=== PATIENT | male | born 1945 | race Caucasian/White ===

== ENCOUNTER 2020-09-16 07:09 | Outpatient (REF) | payer MEDICARE, SELFPAY ==
[2020-09-16 11:51] LABS: Anion Gap 13 (12-20); Blood Urea Nitrogen 18 mg/dL (9-16); Carbon Dioxide 29 mmol/L (22-29); Cholesterol 124 mg/dL; Estimated Glomerular Filt Rate > 60; Glucose Fasting 92 mg/dL (60-99); HDL Cholesterol 48 mg/dL; LDL Cholesterol Calculated 63 mg/dl; Potassium 3.9 mmol/L (3.3-5.1); Triglycerides 69 mg/dL
[2020-09-16 11:57] LABS: Chloride 103 mmol/L (96-108); Sodium 141 mmol/L (135-145)
== END 2020-09-16 07:10 | disposition home or self-care (01) ==
LOC: HO.HMGCLDS 07:09
PROVIDERS: PCP Internal Medicine; Visit Provider Internal Medicine
DX: E78.2 Mixed hyperlipidemia (principal)
CPT/HCPCS: 36415; 80048; 80061

== ENCOUNTER 2021-01-27 07:26 | Outpatient (REF) | payer MEDICARE, SELFPAY ==
[2021-01-27 12:11] LABS: Alanine Aminotransferase 33 U/L (0-40); Aspartate Amino Transferase 28 U/L (5-37); Cholesterol 121 mg/dL; HDL Cholesterol 52 mg/dL; LDL Cholesterol Calculated 51 mg/dl; Triglycerides 91 mg/dL
== END 2021-01-27 07:27 | disposition home or self-care (01) ==
LOC: HO.HMGCLDS 07:26
PROVIDERS: PCP Internal Medicine; Visit Provider Internal Medicine Cardiovascular Disease
DX: E78.1 Pure hyperglyceridemia (principal); I21.4 Non-ST elevation (NSTEMI) myocardial infarction
CPT/HCPCS: 36415; 80061; 84450; 84460

== ENCOUNTER 2021-09-15 06:49 | Outpatient (REF) | payer MEDICARE, SELFPAY ==
[2021-09-15 11:45] LABS: Anion Gap 13 (12-20); Blood Urea Nitrogen 23 mg/dL (9-16); Calcium 9.5 mg/dL (8.4-10.2); Carbon Dioxide 28 mmol/L (22-29); Chloride 105 mmol/L (96-108); Estimated Glomerular Filt Rate > 60; Glucose Random 97 mg/dL (60-115); Potassium 3.9 mmol/L (3.3-5.1); Sodium 142 mmol/L (135-145)
[2021-09-15 11:53] LABS: Prostate Specific Antigen 3.26 ng/mL (<0.05-4.0)
== END 2021-09-15 06:50 | disposition home or self-care (01) ==
LOC: HO.HMGCLDS 06:49
PROVIDERS: Visit Provider Internal Medicine
DX: Z12.5 Encounter for screening for malignant neoplasm of prostate (principal); E78.2 Mixed hyperlipidemia
CPT/HCPCS: 36415; 80048; 84153

== ENCOUNTER 2022-04-22 07:13 | Outpatient (REF) | payer MEDICARE, SELFPAY ==
[2022-04-22 12:32] LABS: Alanine Aminotransferase 35 U/L (0-40); Albumin Level 4.3 g/dL (3.5-5.0); Alkaline Phosphatase 83 U/L (39-117); Aspartate Amino Transferase 26 U/L (5-37); Bilirubin Direct 0.6 mg/dL (0.0-0.5); Bilirubin Total 1.6 mg/dL (0.0-1.0); Cholesterol 129 mg/dL; HDL Cholesterol 48 mg/dL; LDL Cholesterol Calculated 63 mg/dl; Total Protein 6.8 g/dL (6.5-8.0); Triglycerides 90 mg/dL
== END 2022-04-22 07:14 | disposition home or self-care (01) ==
LOC: HO.HMGCLDS 07:13
PROVIDERS: PCP Internal Medicine; Visit Provider Nurse Practitioner
DX: I21.4 Non-ST elevation (NSTEMI) myocardial infarction (principal)
CPT/HCPCS: 36415; 80061; 80076

== ENCOUNTER 2023-02-22 07:32 | Outpatient (REF) | payer MEDICARE, SELFPAY ==
[2023-02-22 12:02] LABS: Anion Gap 15 (12-20); Blood Urea Nitrogen 24 mg/dL (9-16); Calcium 9.9 mg/dL (8.4-10.2); Carbon Dioxide 27 mmol/L (22-29); Chloride 103 mmol/L (96-108); Cholesterol 119 mg/dL; Estimated Glomerular Filt Rate > 60; Glucose Random 100 mg/dL (60-115); HDL Cholesterol 51 mg/dL; LDL Cholesterol Calculated 53 mg/dl; Sodium 141 mmol/L (135-145); Triglycerides 77 mg/dL
== END 2023-02-22 07:33 | disposition home or self-care (01) ==
LOC: HO.HMGCLDS 07:32
PROVIDERS: PCP Internal Medicine; Visit Provider Internal Medicine
DX: E78.2 Mixed hyperlipidemia (principal)
CPT/HCPCS: 36415; 80048; 80061

== ENCOUNTER 2024-10-23 07:22 | Outpatient (REF) | payer MEDICARE, SELFPAY ==
--- OUTSIDE RECORDS SUMMARY | 2024-10-23 07:25 | XMS_ITS | Data Portability ---
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 Med. & Rehab LYN ROWE Primary Care Provider [phone] JUAN PERKINS Double Corner Cutter DION MATSON Erp Analyst [phone] CELINE SANTOS Urologist Assessment Encounter Date Assessment Date Assessment LastModified by Organization Details LastModified Time 08/01/2024 08/01/2024 Assessment: Patient presents to initial physical therapy evaluation with signs and symptoms consistent with: improving subacute shoulder pain . Mild AROM deficits present but not pain with passive motion or resisted testing. Based on exam, patient appropriate to self manage at this point - return in 3-4 weeks to ensure further progress back towards PLOF. Delacruz deficits/impairme nts: shoulder AROM Functional limitations: difficulty with lifting/reaching, self-care tasks and ADL Response to treatment: patient demonstrates safe and appropriate performance of initial home exercise program. Patient tolerated all interventions well and denied adverse events upon departure. Patient would benefit from skilled PT intervention in order to address the aforementioned impairments, maximize patient function, and achieve patient specific goals. Patients' prognosis for improvement with PT care is GOOD. Goal Progress Comment Improve QuickDASH score by 10% to determine significant functional improvement. new Independent in comprehensive HEP. new Normalize L shoulder flexion and abduction AROM new new Additional goals to be added as appropriate. Plan: Patient will benefit from 10 weeks of skilled physical therapy at a frequency of 1session(s) per week. Treatment to include the following as indicated: 02159 Therapeutic Exercise, 76385 Neuromuscular Re-education, 49200 Gait Training, 47114 Manual Therapy, 86967 Therapeutic Activity, and 95304 Self-care and ADL Training Next visit: return in 3-4 weeks for repeat assessment [email or web address] Not available 08/01/2024 15:14:25 08/22/2024 08/22/2024 Assessment: improving subacute shoulder pain Initiating home exercise program for reduced jt irritation. Updated home exercises issued in writing. Delacruz deficits/impairme nts: shoulder AROM Functional limitations: difficulty with lifting/reaching, self-care tasks and ADL Response to treatment: patient demonstrates safe and appropriate performance of initial home exercise program. Patient tolerated all interventions well and denied adverse events upon departure. Patient would benefit from skilled PT intervention in order to address the aforementioned impairments, maximize patient function, and achieve patient specific goals. Plan: Patient will benefit from 10 weeks of skilled physical therapy at a frequency of 1session(s) per week. Treatment to include the following as indicated: 88549 Therapeutic Exercise, 43312 Neuromuscular Re-education, 38031 Gait Training, 12322 Manual Therapy, 44700 Therapeutic Activity, and 37813 Self-care and ADL Training Next visit: return in 3-4 weeks for repeat assessment, trial MT as needed [email or web address] Not available 08/22/2024 14:58:22 09/11/2024 09/11/2024 Assessment: improving subacute shoulder pain Mild improvements noted. Updated home exercises issued in writing. Delacruz deficits/impairme nts: shoulder AROM Functional limitations: difficulty with lifting/reaching, self-care tasks and ADL Response to treatment: patient demonstrates safe and appropriate performance of initial home exercise program. Patient tolerated all interventions well and denied adverse events upon departure. Patient would benefit from skilled PT intervention in order to address the aforementioned impairments, maximize patient function, and achieve patient specific goals. Plan: Patient will benefit from 10 weeks of skilled physical therapy at a frequency of 1session(s) per week. Treatment to include the following as indicated: 83837 Therapeutic Exercise, 56478 Neuromuscular Re-education, 62731 Gait Training, 80597 Manual Therapy, 81980 Therapeutic Activity, and 20893 Self-care and ADL Training Next visit: review home program and progress as appropriate [email or web address] Not available 09/11/2024 12:30:23 09/24/2024 09/24/2024 Assessment: improving subacute shoulder pain Cues today to narrow hand position on push-ups for reduced load on anterior shoulder. No changes to home program today. Improvements today noted in AROM functional IR. Delacruz deficits/impairme nts: shoulder AROM Functional limitations: difficulty with lifting/reaching, self-care tasks and ADL Response to treatment: patient demonstrates safe and appropriate performance of initial home exercise program. Patient tolerated all interventions well and denied adverse events upon departure. Patient would benefit from skilled PT intervention in order to address the aforementioned impairments, maximize patient function, and achieve patient specific goals. Plan: Patient will benefit from 10 weeks of skilled physical therapy at a frequency of 1session(s) per week. Treatment to include the following as indicated: 58679 Therapeutic Exercise, 33964 Neuromuscular Re-education, 51541 Gait Training, 87387 Manual Therapy, 85537 Therapeutic Activity, and 76347 Self-care and ADL Training Next visit: review home program and progress as appropriate [email or web address] Not available 09/24/2024 12:53:39 10/08/2024 10/08/2024 Assessment: improving subacute shoulder pain Treatment today focused on improving functional IR mobility. Positive response to treatment. Encouraged pt to continue working back towards PLOF. Delacruz deficits/impairme nts: shoulder AROM Functional limitations: difficulty with lifting/reaching, self-care tasks and ADL Response to treatment: patient demonstrates safe and appropriate performance of initial home exercise program. Patient tolerated all interventions well and denied adverse events upon departure. Patient would benefit from skilled PT intervention in order to address the aforementioned impairments, maximize patient function, and achieve patient specific goals. Plan: Patient will benefit from 10 weeks of skilled physical therapy at a frequency of 1session(s) per week. Treatment to include the following as indicated: 40218 Therapeutic Exercise, 59159 Neuromuscular Re-education, 60484 Gait Training, 21245 Manual Therapy, 77555 Therapeutic Activity, and 56231 Self-care and ADL Training Next visit: re-evaluate [email or web address] Not available 10/08/2024 12:54:17 Plan of Treatment Reminders Order Date Submit Date Provider Last Modified By Organization Details Last Modified Time Details Appointments Procedure , 2024 10:00A M Rosalie Banuelos DPM Not available Not available Not available Follow Up, 2024 12:30P M MAGGIE DEL RIO, PT, DPT Not available Not available Not available Wellness Visit 2025 08:30A M Lyn Rowe MD Not available Not available Not available Lab None recorded. Referral None recorded. Procedures None recorded. Surgeries None recorded. Imaging None recorded. Medication Orders None recorded. Patient TargetsNo targets recorded. Patient Instructions Encounter Date Encounter Id Patient Instructions Last Modified By Organization Details Last Modified Time 08/01/2024 [id number] Patient instruct ed to inform attending physical therapist of any apprehension, pain, discomfort, or change in symptoms throughout the course of treatment. Patient verbalized understanding and agreed to comply. Not available 08/01/2024 15:14:32 08/22/2024 [id number] Patient instruct ed to inform attending physical therapist of any apprehension, pain, discomfort, or change in symptoms throughout the course of treatment. Patient verbalized understanding and agreed to comply. [email or web address] Not available 08/22/2024 08:02:23 09/11/2024 [id number] Patient instruct ed to inform attending physical therapist of any apprehension, pain, discomfort, or change in symptoms throughout the course of treatment. Patient verbalized understanding and agreed to comply. Not available 09/11/2024 12:01:03 09/24/2024 [id number] Patient instruct ed to inform attending physical therapist of any apprehension, pain, discomfort, or change in symptoms throughout the course of treatment. Patient verbalized understanding and agreed to comply. [email or web address] Not available 09/24/2024 12:31:56 10/08/2024 [id number] Patient instruct ed to inform attending physical therapist of any apprehension, pain, discomfort, or change in symptoms throughout the course of treatment. Patient verbalized understanding and agreed to comply. [email or web address] Not available 10/08/2024 12:34:40 Reason for Referral None Reported. Results Created Date Observation Date Name Description Value Unit Range Abnormal Flag Note LastModifiedBy Organization Detail LastModifiedTime 07/01/20 24 07/01/2024 XR, shoul lon CLINIC AL HISTOR Y: Left should er pain. TECHNI QUE: 3 views of the left should er were obtain ed. COMPAR RONEY: None. FINDIN GS: There is no fractu re or disloc ation. The acromi oclavi cular joint space is preser betsy. There is acromi oclavi cular joint hypert rophy. The glenoh umeral joint space is preser betsy. IMPRES KALI: No acute bone abnorm ality. Acromi oclavi cular joint degene rative change . Maria Casarez kt: Yolanda Collins ms [facility] (Imaging) [address] , [place], [id number], 07/01/2024 12:57:33 Result Notes None recorded. Problems Name Problem SNOMED Code Status Onset Date Resolution Date Notes Provider Name and Address Organization Details Recorded Time Mixed hyperlip idemia 350016183 Active 2004 Stephanie Gonzalez MD [address] [place], [address], [facility] 6 09:56:39 Carpal tunnel syndrome 64592458 Completed 200106/11/2014 Stephanie Gonzalez MD [address] [place] [address] [place], [address], [facility] 6 09:56:39 Viral disease 90527739 Completed 199904/19/2012 Stephanie Gonzalez MD [address] [place], [place] [address], [address], [facility] 6 09:56:39 Lateral epicondy litis 671146951 Completed 200104/19/2012 Stephanie Gonzalez MD [address] [place], [place] [address], [address], [facility] 6 09:56:40 Temporom andibula r joint disorder 88041062 Completed 200106/11/2014 Stephanie Gonzalez MD [address] [place] [place], [address], [facility] 6 09:56:40 Increase d frequenc y of urinatio n 043892533 Completed 200706/12/2013 [place], [address], [facility] 6 09:56:40 Neck pain 81107678 Completed 200004/19/2012 [place], [address], [facility] 6 09:56:40 Hip pain 07158418 Completed 200606/12/2013 Stephanie Gonzalez MD [address] [place], [address], [facility] 6 09:56:40 Dizzines s 169033111 Completed 200604/19/2012 [place], [address], [facility] 6 09:56:40 Medial epicondy litis 50458873 Completed 200204/19/2012 Stephanie Gonzalez MD [address] [place], [address], [facility] 6 09:56:40 Atopic dermatit is 52979085 Completed 200404/19/2012 [place], [address], [facility] 6 09:56:40 Contact dermatit is due to plants, except food Completed 200406/12/2013 Stephanie Gonzalez MD [address] [place], [address], [facility] 6 09:56:40 Breathin g painful 10993499 Completed 200304/19/2012 [place], [address], [facility] 6 09:56:40 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 200006/11/2014 [place], [address], [facility] 6 09:56:39 Intersti tial myositis 87626160 Completed 200706/11/2014 [place], [address], [facility] 6 09:56:40 Common cold 06963573 Completed 200404/19/2012 Stephanie Gonzalez MD [address] [place], [address], [facility] 6 09:56:40 Cervical spondylo sis without myelopat hy 898745957 Completed 200006/11/2014 Stephanie Gonzalez MD [address] [place], [address], [facility] 6 09:56:40 Knee pain Completed 200606/12/2013 Stephanie Gonzalez MD [address] [place], [address], [facility] 6 09:56:40 On examinat ion - a rash Completed 200604/19/2012 Stephanie Gonzalez MD [address] [place], [address], [facility] 6 09:56:40 Benign paroxysm al position al vertigo 779733709 Completed 200606/11/2014 Stephanie Gonzalez MD [address] [place], [address], [facility] 6 09:56:39 Hyperlip idemia 96401732 Completed 200006/11/2014 Stephanie Gonzalez MD [address] [place], [address], [facility] 6 09:56:39 Abnormal involunt catherine movement 332553399 Completed 200106/11/2014 Stephanie Gonzalez MD [address] [place], [address], [facility] 6 09:56:40 Streptoc occal sore throat 42666862 Completed 200404/19/2012 Stephanie Gonzalez MD [address] [place], [address], [facility] 6 09:56:39 Benign prostati c hyperpla munir 477553971 Active 2004 Stephanie Gonzalez MD [address] [place], [place] [address], [address], [facility] 6 09:56:40 Neck sprain 944578031 Completed 200004/19/2012 Stephanie Gonzalez MD [address] [place], [place] [address], [address], [facility] 6 09:56:40 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 Lyn Rowe MD [address] [place], [place] [address], [address], [facility] 6 14:26:35 Coronary arterios clerosis 46860479 Active 05/2016 cath 60 % mid LAD, resolving OM1 thrombus Lyn Rowe MD [address] [place], [place] [address], [address], [facility] 6 14:27:04 Posterio r vitreous detachme nt 593455781 Active 2023 follows Maria Luisa Rowe MD [address] [place], [place] [address], [address], [facility] 4 18:06:42 Angina pectoris 257289095 Active 2024 Lyn Rowe MD [address] [place], [place] [address], [address], [facility] 5 09:26:30 Problem Notes None recorded. Procedures Surgical History Date Name Laterality Status Provider Name and Address Organization Details Recorded Time 10/09/19 20354: Therapeutic Exercise completed MAGGIE DEL RIO PT, DPT [address] [place], [place] [address], [address], [facility] 10/08/2024 12:53:32 10/09/19 25 64663: Manual Therapy completed MAGGIE DEL RIO PT, DPT [address] [place], [place] [address], [address], [facility] 10/08/2024 12:53:29 10/09/19 25 Treatment and Advice completed MAGGIE DEL RIO, PT, DPT [address] [place], [address], [facility] 10/08/2024 12:34:40 09/25/19 25 19001: Therapeutic Exercise completed MAGGIE DEL RIO, PT, DPT [address] [place], [address], [facility] 09/24/2024 12:52:45 09/25/19 25 66728: Manual Therapy completed MAGGIE DEL RIO, PT, DPT [address] [place], [address], [facility] 09/24/2024 12:52:46 09/25/19 25 Treatment and Advice completed MAGGIE DEL RIO PT, DPT [address] [place], [address], [facility] 09/24/2024 12:31:56 09/11/19 25 70909: Therapeutic Exercise completed MAGGIE DEL RIO PT, DPT [address] [place], [address], [facility] 09/11/2024 12:01:03 09/11/19 25 12923: Manual Therapy completed MAGGIE DEL RIO PT, DPT [address] [place], [address], [facility] 09/11/2024 12:25:37 09/11/19 25 Treatment and Advice completed MAGGIE DEL RIO PT, DPT [address] [place], [address], [facility] 09/11/2024 12:25:27 08/22/19 25 94689: Therapeutic Exercise completed MAGGIE DEL RIO, PT, DPT [address] [place], [address], [facility] 08/22/2024 14:57:20 08/22/19 25 Treatment and Advice completed MAGGIE DEL RIO, PT, DPT [address] [place], [address], [facility] 08/22/2024 14:57:32 08/01/19 25 Smoking Cessation Counselling completed MAGGIE DEL RIO, PT, DPT [address] [place], [address], [facility] 08/01/2024 13:02:20 08/01/19 25 Physical Activity Counselling completed MAGGIE DEL RIO, PT, DPT [address] [place], [address], [facility] 08/01/2024 13:02:20 08/01/19 25 87418: PT Eval Low Complexity completed MAGGIE DEL RIO PT, DPT [address] [place], [address], [facility] 08/01/2024 13:02:20 08/01/19 25 Treatment and Advice completed MAGGIE DEL RIO PT, DPT [address] [place], [address], [facility] 08/01/2024 15:12:02 07/29/19 25 Medicare Wellness Visit completed JAZMYNE Haas [facility] 07/25/2024 13:51:51 07/29/19 25 Cardiovascular disease risk reduction counseling completed JAZMYNE Haas [facility] 07/25/2024 13:53:35 07/29/19 25 prevention-annual alcohol misuse screening completed JAZMYNE Haas [facility] 07/25/2024 13:53:33 09/22/19 21 Medicare Wellness Visit completed Shannon Velásquez [facility] 09/21/2020 08:34:26 09/22/19 21 prevention-cardiov ascular risk reduction counseling completed Shannon Velásquez [facility] 09/21/2020 08:34:26 09/22/19 21 prevention-annual alcohol misuse screening completed Shannon Velásquez [facility] 09/21/2020 08:34:26 02/07/20 20 Marylin - Colonoscopy completed Brian Coulter MD [address] [place] [address], [address], [facility] 02/07/2020 08:16:00 09/16/19 20 Medicare Wellness Visit completed Shannon Velásquez [facility] 09/16/2019 08:36:48 09/16/19 20 prevention-annual alcohol misuse screening completed Shannon Velásquez [facility] 09/16/2019 08:36:48 09/11/19 19 Medicare Wellness Visit completed Shannon Velásquez CMA [facility] 09/11/2018 14:08:14 09/19/19 18 87979: Therapeutic Exercise completed Rosalie Downs, PT [address] [place], [address], [facility] 09/19/2017 16:31:52 09/11/19 18 14349: Therapeutic Exercise completed Rosalie Downs, PT [address] [place], [address], [facility] 09/11/2017 12:53:34 09/04/19 18 Physical Activity Counselling completed Rosalie Downs, PT [address] [place], [address], [facility] 09/04/2017 12:53:28 09/04/19 18 97501: PT Eval, Moderate Complexity completed Rosalie Downs, PT [address] [place], [address], [facility] 09/04/2017 12:53:31 08/18/19 18 Knee (Left) Injection completed Lyn Rowe MD [address] [place], [address], [facility] 08/18/2017 16:45:10 07/07/20 17 Medicare Wellness Visit completed Jerman Ardon LPN [facility] 07/07/2017 09:25:42 07/04/20 16 Medicare Wellness Visit completed Anjelica Hi [facility] 07/04/2016 11:13:18 07/03/20 15 Medicare Wellness Visit completed Geri Melendez [facility] 07/03/2015 10:34:17 08/04/19 15 Gonzalez - Colonoscopy completed Mike Gonzalez MD [address] [place], [address], [facility] 08/04/2014 11:22:10 01/08/20 14 Current <strong>Medication s</strong> not Documented, Reason not Given (G8428) completed Rosalie Downs, PT [address] [place], [address], [facility] 01/08/2014 06:45:51 12/31/19 14 <strong>Pain</stro ng> Assessment and Follow-up (G8730) completed Rosalie Downs, PT [address] [place], [address], [facility] 12/31/2013 07:20:30 12/31/19 14 <strong>Falls</str michela> Risk Assessment - No Risk (1101F) completed Rosalie Downs, PT [address] [place], [address], [facility] 12/31/2013 07:20:30 12/31/19 14 <strong>Functional </strong> Outcome w/ POC (G8539) completed Rosalie Downs, PT [address] [place], [address], [facility] 12/31/2013 07:20:30 12/31/19 14 <strong>BMI</stron g> not Documented, Reason not Given (G8421) completed Rosalie Downs, PT [address] [place], [address], [facility] 12/31/2013 07:20:30 12/31/19 14 Current <strong>Medication s</strong> not Documented, Reason not Given (G8428) completed Rosalie Downs, PT [address] [place], [address], [facility] 12/31/2013 07:20:30 05/28/20 13 Medicare Wellness Visit completed Jasmine Denise MA [facility] 05/28/2013 09:43:08 05/24/20 12 Medicare Wellness Visit completed Zayda Paz CMA [facility] 05/24/2012 11:34:23 Imaging Results Imaging Date Name Status LastModified by Organiz ation Details LastModified Time 07/01/2024 XR, shoulder completed [facility] (Im[facility]) [address], [place], [id number], 07/01/2024 12:57:33 Procedure Notes None recorded. Medical Equipment None Reported. Allergies Allergen ID Allergen Name Allergen Category Reaction Reaction Severity Criticality Documentation Date Start Date Code Code System Note Provider Name and Address Organization Details Recorded Time 70245 penicilli n G Not available itching Not available Not available 03/11/2011 7980 RxNorm Not Available [facility] 1 06:05:41 Medications Name Sig Start Date Stop Date Status Note LastModified by Organization Details LastModified Time cyclobenz aprine 10 mg tablet Take 1 tablet every 8 hours by oral route as needed. 2013 active Not Available Not Available Not Avai lable atorvasta tin 80 mg tablet TAKE 1 TABLET BY MOUTH EVERY DAY AT BEDTIME active Not Available Not Available No t Available prednison e 10 mg tablet TAKE 4 TAB BY MOUTH IN THE MORNING FOR 5 DAYS, THEN TAKE 2 TAB/5 DAYS, THEN 1 TAB/4 DAYS, WITH FOOD 05/30 completed Not Available Not Available Not Available atorvasta tin 20 mg tablet TAKE 1 TABLET BY MOUTH EVERY DAY 06/10 completed stopped at [facility] while inpt Not Available Not Available Not Available fluconazo le 150 mg tablet TAKE 1 TABLET BY MOUTH EVERY DAY FOR 3 DAYS 09/16 completed Not Available Not Available Not Available metoprolo l succinate ER 50 mg tablet,ex tended release 24 hr TAKE 1/2 TABLET (25 MG TOTAL) BY MOUTH EVERY DAY. active Not Available Not Available No t Available Claritin 10 mg tablet Take 1 tablet every day by oral route. 06/10 completed Not Available Not Available Not Available prednison e 20 mg tablet Take 2 pills together every morning for the first 5 days. Take 1 pill every morning for the next 5 days. Take a half pill every morning for the last 4 days.Alw ays take with food. 05/30 completed Not Available Not Available Not Available clopidogr el 75 mg tablet TAKE 1 TABLET BY MOUTH EVERY DAY 07/07 completed Not Available Not Available Not Available Aspir-Low 81 mg tablet,de layed release Take 1 tablet every day by oral route. active Not Available Not Available No t Available prochlorp erazine maleate 10 mg tablet active Not Available Not Available Not Available Benadryl Extra Strength 2 %-0.1 % topical cream Apply by topical route 2-3 times 06/10 completed Not Available Not Available Not Available benzonata te 100 mg capsule TAKE 1 CAPSULE BY MOUTH THREE TIMES A DAY NEEDED FOR 10 DAYS 09/16 completed Not Available Not Available Not Available clotrimaz ole-betam ethasone 1 %-0.05 % topical cream APPLY TO AFFECTED AREA TWICE A DAY FOR 2 WEEKS 09/16 completed Not Available Not Available Not Available nitroglyc jb 0.4 mg sublingua l tablet one under the tongue as needed for anginal symptoms , repeat in 5 minutes x 2 dosesthe n call 911 if symptoms persist 07/29 completed Not Available Not Available Not Available bisacodyl 5 mg tablet,de layed release TAKE 4 TABLETS BY MOUTH WITH 8 OUNCES OF WATER 09/21 completed Not Available Not Available Not Available metoprolo l succinate ER 25 mg tablet,ex tended release 24 hr TAKE 1 TABLET BY MOUTH EVERY DAY 11/13 completed Not Available Not Available Not Available fluticaso ne propionat e 50 mcg/actua tion nasal spray,gavin pension SPRAY 1 SPRAY INTO EACH NOSTRIL EVERY DAY 07/29 completed Not Available Not Available Not Available cyclobenz aprine 5 mg tablet Take 1 tablet 3 times a day by oral route as needed, for muscular pain / strain.. 07/29 completed Not Available Not Available Not Available multivita min active Not Available Not Available Not Available Glucos Chond Cplx Advanced active Not Available Not Available Not Available GaviLyte- G 236 gram-22.7 4 gram-6.74 gram-5.86 gram oral solution 09/21 completed Not Available Not Available Not Available Osteo Bi-Flex active Not Available Not Available Not Available metoprolo l succ 25 mg-hydroc hlorothia zide 12.5 mg tablet,ex t.rel 24 hr Take 1 tablet every day by oral route. 07/07 completed Not Available Not Available Not Available Vicodin 5 mg-300 mg tablet Take 1-2 tablet(s ) EVERY 4 HOURS by oral route. 2013 active Not Available Not Available Not Avai lable Fluzone High-Dose (PF) 180 mcg/0.5 mL intramusc ular syringe TO BE ADMINIST ERED BY PHARMACI ST FOR IMMUNIZA TION active Not Available Not Available No t Available Fluzone High-Dose (PF) 180 mcg/0.5 mL intramusc ular syringe TO BE ADMINIST ERED BY A PHARMACI ST 07/04 completed Not Available Not Available Not Available Fluzone High-Dose 0636-0063 (PF) 180 mcg/0.5 mL intramusc ular syringe ADMINIST ERED BY [facility] 07/07 completed Not Available Not Available Not Available Fluzone High-Dose 2234-6275 (PF) 180 mcg/0.5 mL intramusc ular syringe TO BE ADMINIST ERED BY PHARMACI ST FOR IMMUNIZA TION 08/28 completed Not Available Not Available Not Available Fluzone High-Dose 2018- (PF) 180 mcg/0.5 mL intramusc ular syringe 09/16 completed Not Available Not Available Not Available Fluad Quad 0213-3717 (65yr up)(PF) 60 mcg (15 mcg x 4)/0.5mL IM syringe PHARMACY ADMINIST ERED 09/21 completed Not Available Not Available Not Available Paxlovid 300 mg (150 mg x 2)-100 mg tablets in a dose pack Take 1 dose pk twice a day by oral route for 5 days. 07/20 completed Not Available Not Available Not Available Vitals None Recorded Social History Question Answer Notes LastModified by Organizat ion Details LastModified Time Tobacco Smoking Status Never Smoker JAZMYNE Haas, [facility] 07/29/2024 08:35:04 Do You Have An Advance Directive? No Given Today 08/26/2009 [email or web address] Information not available 08/26/2009 What Is Your Level Of Alcohol Consumption? Occasional 1-2 Month Information not available 09/16/2019 Do You Wear A Helmet When Biking? Yes Information not available 07/04/2016 What Is Your Level Of Caffeine Consumption? Moderate 1-2 Cups Daily [email or web address] Information not available 09/11/2018 How Much Tobacco Do You Chew? None Information not available 07/04/2016 Are You Currently Employed? No Information not available 07/20/2022 What Type Of Diet Are You Following? REGULAR Information not available 07/04/2016 Education 4 Year College Information not available 07/04/2016 What Is Your Occupation? Retired [email or web address] Information not available 07/07/2017 Have There Been Any Changes To Your Family Or Social Situation? No [email or web address] Information not available 07/20/2022 How Many Days In The Past Year Have You Had A Heavy Drinking Consumption (4+ Female, 5+ Male)? 0 Information not available 08/16/2012 Are There Any Guns Present In Your Home? No Information not available 07/04/2016 Do You Use Insect Repellent Routinely? No Information not available 07/20/2022 Live Alone Or With Others? With Others Information not available 07/04/2016 Patient Has Health Care Proxy Signed And In Chart No INFORMATION GIVEN 05/24/2012 Information not available 05/24/2012 CCM Consent Discussion 07/04/2016 [email or web address] Information not available 07/04/2016 Marital Status Informatio n not available 07/04/2016 Mosquito Repellent Used Routinely Yes Information not available 07/04/2016 What Was The Date Of Your Most Recent Tobacco Screening? 07/29/2024 Information not available 07/29/2024 How Many Children Do You Have? 2 [email or web address] Information not available 09/11/2018 What Is Your Relationship Status? [email or web address] Information not available 07/20/2022 Do You Use Your Seat Belt Or Car Seat Routinely? Yes [email or web address] Information not available 07/20/2022 Seat Belts Used Routinely Yes Information not available 07/04/2016 Smoke Alarm In Home Yes Information not available 07/04/2016 Do You Have Smoke And Carbon Monoxide Detectors In Your Home? Yes [email or web address] Information not available 07/20/2022 Are You Passively Exposed To Smoke? No [email or web address] Information not available 07/20/2022 General Stress Level Low Information not available 07/04/2016 Do You Use Sunscreen Routinely? Yes Information not available 07/04/2016 Sex: Male Functional Status Question Answer Note LastModified by Organizat ion Details LastModified Time What is your exercise level? Moderate 3 times a week [email or web address] Information not available 07/20/2022 Mental Status None recorded. Family History Nothing Reported. Medical History Condition Response NEUROLOGIC N EYE N RENAL / GENITOURINARY N HEMATOLOGIC N INFECTIOUS DISEASE N GASTROINTESTINAL N METABOLIC N SKIN Y CARDIOVASCULAR N MUSCULOSKELETAL N ENDOCRINE N RHEUMATOLOGIC N PSYCHIATRIC N CANCER N Immunizations Vaccine Type Date Status Note Provider Nam e and Address Organization Details Recorded Time Influenza, split virus, trivalent, preservative 1 completed Not Available [facility] 08/10/2019 02:18:10 Td(adult) unspecified formulation 5 completed Not Available [facility] 06/08/2011 05:21:07 Influenza, split virus, trivalent, preservative 2 completed Not Available [facility] 08/10/2019 02:31:15 pneumococcal polysaccharide PPV23 2 completed Not Available [facility] 08/10/2019 02:14:35 Influenza, split virus, trivalent, PF 3 completed Not Available [facility] 08/10/2019 02:30:29 Pneumococcal conjugate PCV 13 5 completed Not Available [facility] 08/10/2019 02:29:57 Influenza, high-dose, trivalent, PF 4 completed Not Available [facility] 08/24/2019 02:10:39 Td (adult), 2 Lf tetanus toxoid, preservative free, adsorbed 7 completed Not Available [facility] 08/10/2019 02:22:28 Influenza, high-dose, trivalent, PF 5 completed Not Available [facility] 08/24/2019 02:10:39 influenza, unspecified formulation 6 completed Anjelica zepeda, [facility] 07/04/2016 11:20:58 Influenza, split virus, quadrivalent, preservative 8 completed Michele Ellison NP [address] [place] [address], [id number], [facility] 05/27/2018 17:30:38 Influenza, split virus, quadrivalent, preservative 9 completed STEF Agrawal, [facility] 04/26/2019 10:18:56 Influenza, split virus, quadrivalent, preservative 0 completed STEF Agrawal, [facility] 09/21/2020 08:36:59 Influenza, high-dose, trivalent, PF 4 completed Anne Espinosa MA null, [facility] 07/01/2024 17:29:32 COVID-19, mRNA, LNP-S, PF, 30 mcg/0.3 mL dose 1 completed [facility] 01/[facility]2022 13:50:55 COVID-19, mRNA, LNP-S, PF, 30 mcg/0.3 mL dose 1 completed [facility] 01/19/2022 13:51:07 COVID-19, mRNA, LNP-S, PF, 30 mcg/0.3 mL dose 1 completed [facility] 01/19/2022 13:51:20 Influenza, adjuvanted, quadrivalent, PF 2 completed [facility] 07/20/2022 11:25:19 COVID-19, mRNA, LNP-S, PF, 30 mcg/0.3 mL dose, suzie-sucrose 2 completed [facility] 07/20/2022 11:25:42 Influenza, high-dose, quadrivalent, PF 3 completed JAZMYNE Saunders null, [facility] 07/26/2023 08:39:22 COVID-19, mRNA, LNP-S, PF, 30 mcg/0.3 mL dose 4 [facility] 07/01/2024 10:06:41 Past Encounters Encounter ID Performer Location Encounter Start Date Encounter Closed Date Diagnosis/Indication Diagnosis SNOMED-CT Code Diagnosis ICD10 Code Diagnosis Note [id number] [facility] Urgent Care [address] [place] [address] 06/10/2000 11:15:00 08/13/2008 02:02:29 [id number] , [facility], OFFICE [address] [place] [address] 08/01/2000 08:00:00 08/13/2008 02:02:29 [id number] Physical Therapy, [facility] [address] [place] [id number] 08/04/2000 08:30:00 08/13/2008 02:02:29 [id number] FP [facility], OFFICE [address] [place] [address] 1 08/21/2000 08:30:00 08/13/2008 02:02:29 [id number] [facility]IOR [facility], OFFICE [address] [place] [address] 04/19/2001 15:30:00 08/13/2008 02:02:29 [id number] [facility]IOR [facility], OFFICE [address] [place] [address] 1 06/11/2001 16:45:00 08/13/2008 02:02:29 [id number] FP [facility], OFFICE [address] [place] [id number] 10/04/2001 16:00:00 08/13/2008 02:02:29 [id number] Y[facility]IOR [facility], OFFICE [address] [place] [address] 1 11/30/2001 08:00:00 08/13/2008 02:02:29 [id number] Y[facility]IOR [facility], OFFICE [address] [place] [id number] 1 04/10/2002 08:53:06 08/13/2008 02:02:29 [id number] FP [facility], OFFICE [address] [place] [address] 1 02/17/2003 15:43:41 08/13/2008 02:02:29 [id number] [facility]IOR [facility], OFFICE [address] [place] [id number] 09/04/2003 07:54:34 09/04/2003 15:46:23 [id number] FP [facility], OFFICE [address] [place] [id number] 1 10/15/2004 14:05:05 2004 09:21:19 [id number] [facility] - [facility] [address] [place] [address] 2004 07:34:47 2004 08:22:46 [id number] YUNIOR [facility], OFFICE [address] [place] [id number] 10/25/2004 15:53:33 10/26/2004 09:18:38 [id number] [facility], OFFICE [address] [place] [address] 11/05/2004 12:11:51 11/05/2004 17:39:29 [id number] , [facility], OFFICE [address] [place] [address] 12/03/2004 10:07:06 12/03/2004 11:47:44 [id number] [facility] , [facility] [address] [place] [address] 08/08/2006 14:05:04 08/09/2006 10:57:58 [id number] , [facility], OFFICE [address] [place] [address] 08/08/2006 13:47:50 08/08/2006 14:40:47 [id number] [facility], OFFICE [address] [place] [address] 1 09/27/2006 09:30:31 09/28/2006 08:48:32 [id number] [facility], [facility] [address] [place] [address] 10/11/2006 16:13:35 10/12/2006 08:19:05 [id number] [facility], [facility] [address] [place] [address] 1 11/16/2007 08:29:41 08/13/2008 02:02:29 [id number] [facility], [facility] [address] [place] [address] 05/20/2008 08:15:11 08/13/2008 02:02:29 [id number] [facility] - [facility] [address] [place] [address] 05/20/2008 08:37:08 05/20/2008 08:37:16 [id number] [facility], [facility] [address] [place] [address] 08/26/2009 14:38:01 08/27/2009 09:51:57 [id number] [facility], [facility] [address] [place] [address] 1 03/11/2011 08:56:07 03/14/2011 08:13:42 [id number] , [facility], [address] [place] [address] 07/23/2011 11:33:03 07/23/2011 11:56:38 [id number] Reggie No III, MD , [facility], OFFICE [address] [place] [address] [place] [id number] 05/24/2012 11:26:48 05/24/2012 12:02:44 [id number] Jass Randolph MD [facility] , [address] [place] [id number] 06/21/2012 10:13:33 06/25/2012 13:59:47 [id number] Reggie No III, MD , [facility], [address] [place] [address] 08/16/2012 10:23:47 08/16/2012 10:42:10 [id number] Jasmine Denise MA , [facility], OFFICE [address] [place] [address] [place] [id number] 05/28/2013 09:35:53 05/28/2013 10:02:00 Adult health examination [id number] see Risk Assessment and Lifestyle Change Counseling section above Counseling [id number] Influenza vaccine needed [id number] 106 Hip joint painful on movement 411266661 [id number] Kathleen Teran MA , [facility], [address] [place] [address] 12/26/2013 09:34:21 12/26/2013 10:25:52 Backache [id number] [facility], [address] [place] [address] 12/30/2013 14:12:35 12/31/2013 09:44:56 Backache 506160781 [id number] [facility], [address] [place] [address] 01/07/2014 09:30:05 01/08/2014 10:33:12 Backache 487716400 [id number] , [facility], OFFICE [address] [place] [address] [place] [address] 06/11/2014 10:34:28 06/11/2014 11:11:41 Adult health examination [id number] see Risk Assessment and Lifestyle Change Counseling section above Benign pro static hyperplasia [id number] [facility], [address] [place] [id number] 08/04/2014 10:07:06 08/04/2014 14:21:28 [id number] Lyn Rowe MD , [facility], OFFICE [address] [place] [address] DR [place] [id number] 02/02/2015 16:22:58 02/03/2015 20:07:10 Eustachian tube disorder 18353292 Dx, cause course of and treatment options discussed and agreed to. from [place] sc[place] trip [id number] Lyn Rowe MD , [facility], [address]ICE [address] [place] [address] 07/03/2015 10:08:26 07/03/2015 11:08:29 Adult health examination 609521342 Z00.00 well pt .with controlled hyperlipid emia, no other active issues see Risk Assessment and Lifestyle Change Counseling section above Counseling 180497942 Z71 .9 Screening for disorder 723307548 Z11.59 Active or passive immunization 569870004 Z23 Hyperlipidemia 16877670 E78.5 last at goal on atorvastat in 20 mg pkan contiune indefinite ly routine care [id number] Stephanie Gonzalez MD , [facility], [address]ICE [address] [place] [address] 12/24/2015 09:41:45 12/25/2015 10:38:34 Generalized atopic dermatitis 298369396 L20.89 most likely due to poizon price/oak Backache 233190780 M54.9 chronic problem controlled w flexerill when it is flare up, refilled [id number] Lyn Rowe MD , [facility], OFFICE [address] [place] [address] 07/04/2016 10:55:54 07/04/2016 11:59:19 Adult health examination 267747644 Z00.00 see Risk Assessment and Lifestyle Change Counseling section above Counseling 492906417 Z71 .9 Screening for disorder 025884079 Z11.59 Hyperlipidemia 87553258 E78.5 though at goal on atorvastat in 20 mghad dose increased ator 80 since [place].routine care [place] inferi or myocardial infarction 765911684 I25.2 historical .Heart attack Monday the following a hike. I was released from [facility] cardiac landry today and am being treated by Dr. Juan Perkins of [facility] .I have an appointmen t with you on July [address] Perkins on June 27.ator increased, heparin for small OM1 thrombus angina is SSC pressure with lightheade dness sweats L arm weakness. r/w ASA only by EMS [facility] fluctuatin g ST elevations inferiorly and trop mildly elevated. Echo with preserved WM nl EF. no stent placed Coronary arteriosclerosis 04041429 I25.10 05/2016 cath 60 % mid LAD, resolving OM1 thrombusNS [facility]/ u Dr. Juan Perkins of [facility] . Angina pectoris 71993806 0 I20.9 angina is SSC pressure with lightheade dness sweats L arm weakness. 06/2016 at time of IMIsymptom free with curren meds, on beta spike, since NSTEMI 06/2016rem inded about sl NTG use.Dr. Juan Perkins of [facility] . [id number] Lyn Rowe MD , [facility], OFFICE [address] [place] [address] 07/07/2017 09:08:19 07/07/2017 10:08:13 Adult health examination 677777026 Z00.00 see Risk Assessment and Lifestyle Change Counseling section above Counseling 446576835 Z71 .9 Active or passive immunization 226430055 Z23 Screening for disorder 365089805 Z11.59 Hyperlipidemia 96371640 E78.5 though at goal on atorvastat in 20 mghad dose increased ator 80 since [place]routine care [place] inferi or myocardial infarction 620569469 I25.2 historical .Heart attack Monday the following a hike. I was released from [facility] cardiac landry today and am being treated by Dr. Juan Perkins of [facility] .I have an appointmen t with you on July [address] Perkins on June 27.ator increased, heparin for small OM1 thrombus angina is SSC pressure with lightheade dness sweats L arm weakness. r/w ASA only by EMS [facility] fluctuatin g ST elevations inferiorly and trop mildly elevated. Echo with preserved WM nl EF. no stent placed Coronary arteriosclerosis 55935754 I25.10 05/2016 cath 60 % mid [facility]AD, [facility] . Angina pectoris 26359349 0 I20.9 angina is SSC pressure with lightheade dness sweats L arm weakness. 06/2016 at time of IMIsymptom free with curren meds, on beta spike, since NSTEMI 06/2016rem inded about sl NTG use.Dr. Juan Perkins of [facility] . Tubular ad enoma of colon 870922961 D12.6 [id number] , [facility], [address]ICE [address] [place] [address] 08/14/2017 10:38:16 08/14/2017 11:19:55 Mass of axilla 864886932 R22.2 cystlike mass Right axilla with largest dimension about 5 cm. Minimal tenderness . No evidence of infection. Plan: This feels benign but we should determine a diagnosis at as it is moderately large. Ultrasound ordered. We also discussed watching for signs of infection. Shoulder pain 22047552 M 25.511 Chronic intermitte nt right shoulder pain gradually getting worse.Exam was normal.Gustabo n: X-ray and if appropriat e order physical therapy. Pain in left knee 141154 9970 69251 M25.562 He has had chronic bilateral knee pain but worse on the left, much worse recently. No known trauma.. He is tender on the medial joint line.Plan: X-ray and if appropriat e physical therapy. [id number] Lyn oRwe MD , [facility], [address] [place] [address] 08/18/2017 11:39:13 08/23/2017 15:30:34 Screening for malignant neoplasm of colon 882459824 Z12.11 Referral for a DIRECT booked colonoscop y. This patient is a healthy ASA Class 1 or 2 patient (only mild systemic disease), or a STABLE, well controlled insulin dependent diabetic. They do not have serious cardiac disease ie [place]/angiopl asty within 1 year, symptomati c CHF; renal failure with CKD 4 or 5; take Coumadin, Plavix, Aggrenox, etc. Screening for disorder 043344490 Z11.59 Pain in left knee 515308 3731 44497 M25.562 this is meniscal disease.me dial jt line left knee pain hiking extensivel yinjected today , medial approach, through tiny opening into synovial spoace.Fol low expectantl y [id number] Rosalie Milian i, PT Physical Therapy, [facility] [address] [place] [address] 09/04/2017 11:23:16 09/04/2017 13:35:11 Pain in right knee 4766774432 12563 M25.897 [id number] Rosalie Milian i, PT Physical Therapy, [address] [place] [address] 09/11/2017 10:56:39 09/11/2017 13:40:06 Pain in right knee 8931836538 09291 M25.540 [id number] Rosalie Milian i, PT Physical Therapy, [address] [place] [address] 09/19/2017 15:30:02 09/19/2017 16:52:23 Pain in right knee 2774471818 30894 M25.997 [id number] Perla Marks MD , [facility], [place]ICE [address] [place] [address] 11/13/2017 11:57:01 11/13/2017 12:29:45 Otalgia 49230251 H92.01 Inflamed and tender right tragus Plan: Warm compresses to the area with a washcloth for 10 minutes 3 times a day. This may diminish and resolve with that simple treatment or it may get worse and could becomea serious infection due to the confined space. Therefore if it becomes worse in a couple days or later we need to see you right away or you need to get medical attention. If at any point you feel a fever or use see redness spreading to a larger area or if you get right-side d neck pain or throat pain these would constitute reasons to get medical care right away. If you feel that you have had no progress with the soaking we would want to see you at the end of the week such as 11/16 or 11/17. [id number] Lyn Rowe MD , [facility], OFFICE [address] [place] [address] 01/29/2018 09:40:54 01/29/2018 16:53:46 Screening for malignant neoplasm of colon 309871311 Z12.11 due jul 2019.last 2014 Gonzalez, recall 5 yrs Balanitis 08331249 N48.1 very erythemato us penis under the foreskinth ere is cracking of the foreskin as he retracts it. no ulceration s presnetrx lotrisone cream and diflucansu ggested using serially Screening for disorder 369331783 Z11.59 Pain in left knee 307175 2334 03255 M25.562 Hx;this is meniscal disease.me dial jt line left knee pain hiking extensivel yinjected today , medial approach, through tiny opening into synovial spoace.Fol low expectantl y Hyperlipidemia 02230388 E78.5 though at goal on atorvastat in 20 mghad dose increased ator 80 [place]routine care [place] inferi or myocardial infarction 659388329 I25.2 historical .Heart attack Monday the following a hike. I was released from [facility] cardiac landry today and am being treated by Dr. Juan Perkins of [facility] .I have an appointmen t with you on July [address] Perkins on June 27.ator increased, heparin for small OM1 thrombus angina is SSC pressure with lightheade dness sweats L arm weakness. r/w ASA only by EMS [facility] fluctuatin g ST elevations inferiorly and trop mildly elevated. Echo with preserved WM nl EF. no stent placed Coronary arteriosclerosis 93666593 I25.10 05/2016 cath 60 % mid [facility]AD, [facility] . Angina pectoris 39047783 0 I20.9 symptom free on ASA ator and metoprolol . angina is SSC pressure with lightheade dness sweats L arm weakness. 06/2016 at time of IMIsymptom free with curren meds, on beta spike, since NSTEMI 06/2016rem inded about sl NTG use.Dr. Juan Perkins of [facility] . [id number] Lyn Rowe MD , [facility], [address]ICE [address] [place] [address] 08/28/2018 09:53:05 08/28/2018 10:56:17 Orchitis 018563890 N45.2 normal scrotal contents,t his is orchitis, treatment with levaquin if swelling seen on US, motrin if no swelling seen.he has found that scrotal support is helpfulno other symptoms, feels well he will schedule a scrotal US at [facility] drove., referral sent .(our US tech is out today) [id number] Lyn Rowe MD , [facility], [address]ICE [address] [place] [address] 09/11/2018 13:53:09 09/11/2018 15:30:41 Adult health examination 569026035 Z00.00 see Risk Assessment and Lifestyle Change Counseling section above Counseling 256519300 Z71 .9 Orchitis 129575833 N45.2 resolved. normal scrotal contents,t his is orchitis, treatment with levaquin if swelling seen on US, motrin if no swelling seen.he has found that scrotal support is helpfulno other symptoms, feels well he will schedule a scrotal US at [facility] drove., referral sent .(our US tech is out today) Screening for malignant neoplasm of colon 070536206 Z12.11 due jul 2019.last 2014 Gonzalez, recall 5 yrs Balanitis 71172916 N48.1 Hx;very erythemato us penis under the foreskinth ere is cracking of the foreskin as he retracts it. 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 I was released from [facility] cardiac landry today and am being treated by Dr. Juan Perkins of [facility] .I have an appointmen t with you on July [address] Perkins on June 27.ator increased, heparin for small OM1 thrombus angina is SSC pressure with lightheade dness sweats L arm weakness. r/w ASA only by EMS [facility] fluctuatin g ST elevations inferiorly and trop mildly elevated. Echo with preserved WM nl EF. no stent placed Coronary arteriosclerosis 39642279 I25.10 05/2016 cath 60 % mid LAD, [facility] . Angina pectoris 26151132 0 I20.9 symptom free on ASA ator and metoprolol .No Hx of HTN angina is SSC pressure with lightheade dness sweats L arm weakness. 06/2016 at time of IMIsymptom free with curren meds, on beta spike, since NSTEMI 06/2016rem inded about sl NTG use.Dr. Juan Perkins of [facility] . [id number] Perla Marks MD , [facility], [address]ICE [address] [place] [address] 03/06/2019 11:22:26 03/06/2019 11:53:33 Contact dermatitis caused by plants 022322024 L25.5 This man has large areas of involvemen t of poison price on both legs especially the medial aspect near the knees. No appearance of infection. Has a tiny area involved near right elbow.Plan : This area of involvemen t is not improving with local treatment therefore he needs prednisone tapering regimen over 14 days.Garrett nue with calamine lotion.Narayan ch for any sign of infection where you see more of a yellow appearance or if you see red streaks going up towards the torso. INFORMATIO N ABOUT PREDNISONE Prednisone is used for its anti-infla mmatory properties in many situations including asthma flareups, emphysema flares, poison price, and other situations . Dosing and instructio ns will be different for every case but there are certain things to know about the medication . It can lower your resistance to fighting off infections because it suppresses your immune system, but this is very unlikely for short courses of prednisone . It can raise your blood sugar, and if you are diabetic your sugars may be in poor control temporaril y. Prednisone can also cause GI upset, heartburn, and ulcers. Some people feel agitated and have difficulty sleeping. Children may feel overly energetic or hyper.Ther e is also a rare situation in which it can cause disintegra tion of an area of the hip. Finally prednisone can cause thinning of the bones leading to osteoporos is. Most of the time our need for prednisone requires only brief courses lasting a few days to 2 weeks and in those cases the main thing that we have concerns about are the stomach symptoms, the sugar, and the agitation or restlessne ss. [id number] IVY Larios , [facility], [address] [place] [address] 05/30/2019 09:23:47 05/30/2019 10:23:32 Cough 62943007 R05 Prescribed Benzonatat e. Advised Pt the importance of staying hydrated. All questions were addressed. Pt understand s and agrees with treatment plan Nasal congestion 7189575 0 R09.81 Advised Pt to use flonase. If flonase fails, recommend Pt to add antihistam james with the flonase. All questions were addressed. Pt understand s and agrees with treatment plan Fever with chills 074036 006 R50.9 No fever today based on temperatur e. Offered flu testing. Pt decline. Discussed Pt to continue to take ibuprofen and tylenol as needed for the body aches and pain throughout the body. Advised Pt of good hand hygiene, importance of staying hydrated. [id number] Lyn Rowe MD , [facility], OFFICE [address] [place] [address] 09/16/2019 08:29:22 09/16/2019 09:32:51 Adult health examination 042801213 Z00.00 see Risk Assessment and Lifestyle Change Counseling section above Counseling 381661128 Z71 .9 including cardiovasc ular risk reduction counseling Depression screening 171 684293 Z13.89 depression screening tool administer ed, entered into emr, scored and discussed, time greater than 7.5 minutes Screening for alcohol abuse 194760751 Z13.39 Orchitis 955298452 N45.2 resolved. normal scrotal contents,t his is orchitis, treatment with levaquin if swelling seen on US, motrin if no swelling seen.he has found that scrotal support is helpfulno other symptoms, feels well he will schedule a scrotal US at [facility] referral sent .(our US tech is out today) Screening for malignant neoplasm of colon 984671425 Z12.11 due jul 2019.last 2014 Carlos, recall 5 yrs Balanitis 34911002 N48.1 Hx;very erythemato us penis under the foreskinth ere is cracking of the foreskin as he retracts it. no ulceration s presnetrx lotrisone cream and diflucansu ggested using serially Pain in left knee 985790 3391 17173 M25.562 Hx;this is meniscal disease.me dial jt line left knee pain hiking extensivel yinjected today , medial approach, through tiny opening into synovial spoace.Fol low expectantl y Hyperlipidemia 57829027 E78.5 LDL at goal , is 67. 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 I was released from [facility] cardiac landry today and am being treated by Dr. Juan Perkins of [facility] .I have an appointmen t with you on July [address] Perkins on June 27.ator increased, heparin for small OM1 thrombus angina is SSC pressure with lightheade dness sweats L arm weakness. r/w ASA only by EMS [facility] fluctuatin g ST elevations inferiorly and trop mildly elevated. Echo with preserved WM nl EF. no stent placed Coronary arteriosclerosis 57009394 I25.10 05/2016 cath 60 % mid LAD, [facility] . Angina pectoris 08094305 0 I20.9 symptom free since 2016 on ASA ator and metoprolol .No Hx of HTN angina is SSC pressure with lightheade dness sweats L arm weakness. 06/2016 at time of IMIsymptom free with curren meds, on beta spike, since NSTEMI 06/2016rem inded about sl NTG use.Dr. Juan Perkins of [facility] . [id number] Zayda Fang RN [facility], [address] [address] 02/07/2020 07:00:26 02/07/2020 12:41:53 [id number] Rosalie Banuelos DPM Podiatry, [address] [address] 06/26/2020 08:03:30 06/26/2020 14:05:17 Pain of left heel [id number] 778562 M79.148 [id number] Lyn Rowe MD , [facility], OFFICE [address] [place] [address] [place] [address] 09/21/2020 08:24:35 09/23/2020 18:14:03 Adult health examination 216201681 Z00.00 see Risk Assessment and Lifestyle Change Counseling section above Counseling 416969843 Z71 .9 including cardiovasc ular risk reduction counseling Depression screening 171 661276 Z13.89 depression screening tool administer ed, entered into emr, scored and discussed, time greater than 7.5 minutes Screening for alcohol abuse 975731330 Z13.39 Orchitis 999605336 N45.2 resolved. normal scrotal contents,t his is orchitis, treatment with levaquin if swelling seen on US, motrin if no swelling seen.he has found that scrotal support is helpfulno other symptoms, feels well he will schedule a scrotal US at [facility]., referral sent .(our US tech is out today) Screening for malignant neoplasm of colon 223604319 Z12.11 6mm TVA and one simplt Adenoma found on colo january 2020 * last 2014 Gonzalez, recall 5 yrs Balanitis 12103878 N48.1 Hx;very erythemato us penis under the foreskinth ere is cracking of the foreskin as he retracts it. no ulceration s presnetrx lotrisone cream and diflucansu ggested using serially Pain in left knee 411288 4143 87543 M25.562 Hx;this is meniscal disease.me dial jt line left knee pain hiking extensivel yinjected today , medial approach, through tiny opening into synovial spoace.Fol low expectantl y Hyperlipidemia 92016286 E78.5 LDL at goal , is 67. atorvastat in at 80 though at goal on atorvastat in 20 mg had dose increased ator 80 since [place]. routine care Old inferi or myocardial infarction 580769766 I25.2 historical . 2016 Heart attack Monday the following a hike. I was released from [facility] landry today and am being treated by Dr. Juan Perkins of [facility] . ator increased, heparin for small OM1 thrombus angina is SSC pressure with lightheade dness sweats L arm weakness. r/w ASA only by EMS C fluctuatin g ST elevations inferiorly and trop mildly elevated. Echo with preserved WM nl EF. no stent placed Coronary arteriosclerosis 66672651 I25.10 05/2016 cath 60 % mid LAD, resolving OM1 thrombus NSTEMI [facility] f/u Dr. [facility], [facility] . ator at 80, metop ER 50 Angina pectoris 99194983 0 I20.9 symptom free since 2015 on ASA ator and metoprolol .No Hx of HTN angina is SSC pressure with lightheade dness sweats L arm weakness. 06/2016 at time of IMIsymptom free with curren meds, on beta spike, since NSTEMI 06/2016rem inded about sl NTG use.Dr. Juan Perkins of [facility] . Screening for malignant neoplasm of prostate 260480431 Z12.5 [id number] Rosalie Banuelos DPM Podiatry, [facility] [address] [place] [address] 10/12/2020 09:57:35 10/12/2020 10:59:56 Plantar fasciitis 221730391 M72.2 [id number] Gianna Mead D.O. , [facility], [address]ICE [address] [place] [address] 01/14/2022 11:50:57 01/14/2022 12:59:59 COVID-19 210863102 U07.1 tested positive 01/12mild URI/head cold symptomsfu lly vaccinated for COVID with booster #1feels better todayok to isolate x 5 days, gentle walking, hydrate well. sent RX to pharmacy- ok to hold off on taking unless feeling worse tomorrow or next day. must take within 5 days and HOLD atorvastat in while taking. patient aware and agrees with plan [id number] Rica Velazquez NP , [facility], OFFICE [address] [place] [address] 01/19/2022 13:41:03 01/19/2022 15:51:19 COVID-19 666047293 U07.1 covid +, sxs x weeksxs improvingv itals good, lctabwill c/w fluids, restf/u prn [id number] Lyn Rowe MD , [facility], [address]ICE [address] [place] [address] 07/20/2022 10:59:44 07/20/2022 11:56:11 Angina pectoris 659399069 I20.9 symptom free since 2015 on ASA ator and metoprolol .No Hx of HTN angina is SSC pressure with lightheade dness sweats L arm weakness. 06/2016 at time of IMIsymptom free with curren meds, on beta spike, since NSTEMI 06/2016cat h neg x OM1 and 50% LAD felt that thrombus had autoluysed had nuclear 2019remind ed about sl NTG use.follow s with Dr. Juan Perkins of [facility] . Adult heal th examination 137998999 Z00.00 see Risk Assessment and Lifestyle Change Counseling section above Counseling 376123255 Z71 .9 including cardiovasc ular risk reduction counseling Depression screening 171 Z13.31 depression screening tool administer ed, entered into emr, scored and discussed, time greater than 7.5 minutes Screening for alcohol abuse 339544110 Z13.39 Mixed hyperlipidemia 267 525106 E78.2 low lipids on ator 80 (2011) Essential hypertension 50492758 I10 at goal on metop ER 50 Screening for malignant neoplasm of colon 750473061 Z12.11 6mm TVA and one simple Adenoma found on colo january 2020 * last 2014 Gonzalez, recall 5 yrs Screening for malignant neoplasm of prostate 751456156 Z12.5 3.2 PSA 08/2021 age 76 [id number] Lyn Rowe MD , [facility], [address]ICE [address] [place] [address] 07/26/2023 08:26:18 07/30/2023 18:12:31 Adult health examination 200758132 Z00.00 see Risk Assessment and Lifestyle Change Counseling section abovefollo windy Glass for retinal disease Depression screening 171 Z13.31 depression screening tool administer ed Screening for alcohol abuse 511827355 Z13.39 Alcohol use screening tool administer ed Counseling 261854098 Z71 .9 including cardiovasc ular risk reduction counseling Angina pectoris 11872235 0 I20.9 [place] since 2015 on ASA ator and metoprolol .No Hx of HTN angina is SSC pressure with lightheade dness sweats L arm weakness. 06/2016 at time of IMIsymptom free with curren meds, on beta spike, since NSTEMI 06/2016cat h neg x OM1 and 50% LAD felt that thrombus had autoluysed had nuclear 2019remind ed about sl NTG use.still follows with Dr. Juan Perkins of [facility] . Mixed hyperlipidemia 267 545166 E78.2 low lipids on ator 80 (2011) Essential hypertension 30671564 I10 at goal on metop ER 50 Screening for malignant neoplasm of colon 350656573 Z12.11 over due, has been notified by letter from [facility] * 6mm TVA and one simple Adenoma found on colo january 2020 * last 2014 Gonzalez, recall 5 yrs Screening for malignant neoplasm of prostate 544344068 Z12.5 3.2 PSA 08/2021 age 76 [id number] Lori Crowell RN Endoscopy , [address] [address] 09/15/2023 12:04:54 09/15/2023 14:11:32 [id number] Rosalie Banuelos DPM Podiatry, [address] [address] 10/16/2023 08:56:37 10/16/2023 09:33:10 Increased blood pressure 77921582 R03.0 Your blood pressure was elevated today (higher than 140/90). Please follow up by scheduling an appointmen t in the Blood Pressure clinic within 2 weeks. Ingrowing toenail 978752 009 L60.0 [id number] CAROLANN SUMNER PA-C , [facility], OFFICE [address] [place] [address] 07/01/2024 09:51:23 07/01/2024 10:49:34 Shoulder pain 03326155 M25.512 Patient jolted his upper body yesterday while out in the [place] after snowfall. Slid down the hill, didn't fall, didn't grab on to anything, but jolted his arms up and out. Had immediate sharp left anterior shoulder pain that travels down his left arm in to his bicep. TTP. Check xray and advised Rest, Ice, Elevation, as needed NSAIDS and muscle relaxer.Co me back and see me if you aren't feeling significan tly better in 10 days - 2 weeks, may need additional imaging / PT/ ortho referral. Do not immobilize your shoulder, can lead to frozen shoulder. 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 2016 Heart attack Monday the following a hike. I was released from [facility] cardiac landry today and am being treated by Dr. Juan Perkins of [facility] . ator increased, heparin for small OM1 thrombus angina is SSC pressure with lightheade dness sweats L arm weakness. r/w ASA only by EMS [facility] fluctuatin g ST elevations inferiorly and trop mildly elevated. Echo with preserved WM nl EF. no stent placed Mixed hyperlipidemia 267 423364 E78.2 low lipids on ator 80 (2011) Coronary arteriosclerosis 31296248 I25.10 05/2016 cath 60 % mid LAD, resolving OM1 thrombus NSTEMI [facility] f/u Dr. Juan Perkins of [place], [address] [facility] . ator at 80, metop ER 50 Benign pro static hyperplasia 552364501 N40.1 nocturia x 1tolerates occ urgency Angina pectoris 93341623 0 I20.9 6 [place] TI[place]symptom free since 2016 on ASA ator and metoprolol .No Hx of HTN angina is SSC pressure with lightheade dness sweats L arm weakness. 06/2016 at time of IMIsymptom free with curren meds, on beta spike, since NSTEMI 06/2016cat h neg x OM1 and 50% LAD felt that thrombus had autoluysed had nuclear 2019remind ed about sl NTG use.still follows with Dr. Juan Perkins of [facility] . 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 [employer] Pain of le ft knee joint 5363743102 56405 M25.562 injected in past [id number] MAGGIE DEL RIO, PT, DPT Physical Therapy, [facility] [address] [place] [address] 08/01/2024 13:06:42 08/01/2024 15:15:37 Pain of left shoulder joint 3594542627 9756048 M25.512 [id number] MAGGIE DEL RIO, PT, DPT Physical Therapy, [address] [address] 08/22/2024 14:31:08 08/22/2024 15:00:53 Pain of left shoulder joint 7934533691 4075857 M25.512 [id number] MAGGIE DEL RIO, PT, DPT Physical Therapy, [address] [address] 09/11/2024 11:56:04 09/11/2024 12:59:04 Pain of left shoulder joint 2830379022 4139173 M25.512 [id number] MAGGIE DEL RIO, PT, DPT Physical Therapy, [address] [address] 09/24/2024 12:22:49 09/24/2024 12:58:46 Pain of left shoulder joint 0865944635 7965006 M25.512 [id number] MAGGIE DEL RIO, PT, DPT Physical Therapy, [address] [address] 10/08/2024 12:29:13 10/08/2024 12:58:41 Pain of left shoulder joint 8457208256 1308652 M25.512 Health Concerns Section Related Observation LastModified by Organization Detai ls LastModified Time None Recorded Concern Status LastModified by Organization Details LastModified Time None Recorded Advance Directives Directive N: given today 08/26/2009 Payers Encounter Date Sequence Insurance Name Policy Number Policy Harvey Covered Member ID Harvey Member ID Guarantor Name 08/01/2024 1 [employer] PLAN (MEDICARE REPLACEMENT HMO) [id number] 04 Herman Guadarrama [id number] Herman Guadarrama 08/22/2024 1 [employer]VANTAGE PLAN (MEDICARE REPLACEMENT HMO) [id number] 04 Herman Guadarrama [id number] Herman Guadarrama 09/11/2024 1 [employer]AGE PLAN (MEDICARE REPLACEMENT HMO) [id number] Herman Guadarrama [id number] Herman Guadarrama 09/24/2024 1 [employer]VANTAGE PLAN (MEDICARE REPLACEMENT HMO) [id number] 04 Herman Guadarrama [id number] Herman Guadarrama 10/08/2024 1 [employer]AGE PLAN (MEDICARE REPLACEMENT HMO) [id number] 04 Herman Guadarrama [id number] Herman Mcintosh Chiara Notes Date Note Type Note Provider Name and Address Organization Details Recorded Time 08/01/2024 text/html PT Initial Eval*Reported bypatient.Prior Studies:x ray (IMPRESSION: No acute bone abnormality. Acromioclavicular joint degenerative change.) QuickDASH - see chartPt referred to PT by {{PCP*}} regarding shoulder pain. This incident happened last month when he was hiking in the [place] with [place]. He slipped when he was hiking in the snow away from his planted L pole and shoulder. He had pain in the front of his shoulder and in his armpit. He has experienced improvement since. He has not been doing anything special to help his shoulder recover but it has slowly been improving. Denies pain today - states he just has discomfort. He has difficulty getting in and out of his coat. He used to have pain sleeping on that side, but sleeping with greater comfort now. He thinks he might have had a micro-tear in his shoulder. Functional Limitations: difficulty with lifting/reaching, self-care tasks and ADL Stated Goals: continue return to OF MAGGIE DEL RIO, PT, DPT [address] [place] [address], [phone], [facility] 08/01/2024 15:15:05 08/22/2024 text/html QuickDASH - see chartPt referred to PT by {{PCP*}} regarding shoulder pain. This incident happened last month when he was hiking in the [place] with walking poles. He slipped when he was hiking in the snow away from his planted L pole and shoulder. He had pain in the front of his shoulder and in his armpit. He has experienced improvement since. He has not been doing anything special to help his shoulder recover but it has slowly been improving. Denies pain today - states he just has discomfort. He has difficulty getting in and out of his coat. He used to have pain sleeping on that side, but sleeping with greater comfort now. He thinks he might have had a micro-tear in his shoulder. Functional Limitations: difficulty with lifting/reaching, self-care tasks and ADL Stated Goals: continue return to PLOF MAGGIE DEL RIO PT, DPT [address] [place], [address], [facility] 08/22/2024 14:58:26 08/22/2024 text/html PT Initial Eval*Reported bypatient.Prior Studies:x ray (IMPRESSION: No acute bone abnormality. Acromioclavicular joint degenerative change.)PT Daily Progress NoteReported bypatient.Notes:no changes in symptoms. Still having difficulty putting on his jacket and tucking in his shirt. MAGGIE DEL RIO PT, DPT [address] [place], [address], [facility] 08/22/2024 14:58:26 09/11/2024 text/html PT Initial Eval*Reported bypatient.Prior Studies:x ray (IMPRESSION: No acute bone abnormality. Acromioclavicular joint degenerative change.)PT Daily Progress NoteReported bypatient.Notes:Still having difficulty putting on his jacket but feels like his shoulder is improving. He has been doing the exercises and added some more as well. Symptoms are up an down. QuickDASH - see chartPt referred to PT by {{PCP*}} regarding shoulder pain. This incident happened last month when he was hiking in the [place] with walking poles. He slipped when he was hiking in the snow away from his planted L pole and shoulder. He had pain in the front of his shoulder and in his armpit. He has experienced improvement since. He has not been doing anything special to help his shoulder recover but it has slowly been improving. Denies pain today - states he just has discomfort. He has difficulty getting in and out of his coat. He used to have pain sleeping on that side, but sleeping with greater comfort now. He thinks he might have had a micro-tear in his shoulder. Functional Limitations: difficulty with lifting/reaching, self-care tasks and ADL Stated Goals: continue return to PLOF MAGGIE DEL RIO PT, DPT [address] [place], [address], [facility] 09/11/2024 12:30:33 09/24/2024 text/html PT Initial Eval*Reported bypatient.Prior Studies:x ray (IMPRESSION: No acute bone abnormality. Acromioclavicular joint degenerative change.)PT Daily Progress NoteReported bypatient.Notes:Should er continues to be mildly sore. Feels like it is improving slowly. QuickDASH - see chartPt referred to PT by {{PCP*}} regarding shoulder pain. This incident happened last month when he was hiking in the [place] with walking poles. He slipped when he was hiking in the snow away from his planted L pole and shoulder. He had pain in the front of his shoulder and in his armpit. He has experienced improvement since. He has not been doing anything special to help his shoulder recover but it has slowly been improving. Denies pain today - states he just has discomfort. He has difficulty getting in and out of his coat. He used to have pain sleeping on that side, but sleeping with greater comfort now. He thinks he might have had a micro-tear in his shoulder. Functional Limitations: difficulty with lifting/reaching, self-care tasks and ADL Stated Goals: continue return to PLOF MAGGIE DEL RIO, PT, DPT [address] [place], [address], [facility] 09/24/2024 12:53:47 10/08/2024 text/html PT Initial Eval*Reported bypatient.Prior Studies:x ray (IMPRESSION: No acute bone abnormality. Acromioclavicular joint degenerative change.)PT Daily Progress NoteReported bypatient.Notes:Sorene ss is getting less frequent. He is able to work out in the yard without restriction. He has not tried any heavy lifting tasks recently. States preference to continue with PT care at this time. QuickDASH - see chartPt referred to PT by {{PCP*}} regarding shoulder pain. This incident happened last month when he was hiking in the [place] with walking poles. He slipped when he was hiking in the snow away from his planted L pole and shoulder. He had pain in the front of his shoulder and in his armpit. He has experienced improvement since. He has not been doing anything special to help his shoulder recover but it has slowly been improving. Denies pain today - states he just has discomfort. He has difficulty getting in and out of his coat. He used to have pain sleeping on that side, but sleeping with greater comfort now. He thinks he might have had a micro-tear in his shoulder. Functional Limitations: difficulty with lifting/reaching, self-care tasks and ADL Stated Goals: continue return to PLOF MAGGIE DEL RIO, PT, DPT [address] [place] [address], [phone], [facility] 10/08/2024 12:54:26
--- OUTSIDE RECORDS SUMMARY | 2024-10-23 07:26 | XMS_ITS | Data Portability ---
Author Organization [facility], , [facility], OFFICE Address [address] [place] [address] Care Team Providers Care Salesperson [employer] Name Role Phone ROSALIE DOWNS Phys. Med. & Rehab [phone] LYN ROWE Primary Care Provider [phone] ALEXA TURK Manager Inventory Control DION MATSON Banker Mason [phone] CELINE SANTOS Urologist Assessment Encounter Date Assessment [...] Treatment to include the following as indicated: 31368 Therapeutic Exercise, 10987 Neuromuscular Re-education, 44592 Gait Training, 62336 Manual Therapy, 99141 Therapeutic Activity, and 23593 Self-care and ADL Training Next visit: return in 3-4 weeks for repeat assessment Not available 08/01/2024 15:14:25 08/22/2024 08/22/2024 Assessment: [...] Treatment to include the following as indicated: 72399 Therapeutic Exercise, 28804 Neuromuscular Re-education, 03786 Gait Training, 39399 Manual Therapy, 60056 Therapeutic Activity, and 47426 Self-care and ADL Training Next visit: return in 3-4 weeks for repeat assessment, trial MT as needed Not available 08/22/2024 14:58:22 09/11/2024 09/11/2024 Assessment: [...] Treatment to include the following as indicated: 81553 Therapeutic Exercise, 60273 Neuromuscular Re-education, 46741 Gait Training, 20523 Manual Therapy, 05753 Therapeutic Activity, and 46423 Self-care and ADL Training Next visit: review home program and progress as appropriate [email or web address] Not available 09/11/2024 12:30:23 09/24/2024 09/24/2024 Assessment: [...] Treatment to include the following as indicated: 97476 Therapeutic Exercise, 85287 Neuromuscular Re-education, 23790 Gait Training, 54816 Manual Therapy, 25819 Therapeutic Activity, and 37932 Self-care and ADL Training Next visit: review home program and progress as appropriate [email or web address] Not available 09/24/2024 12:53:39 10/08/2024 10/08/2024 Assessment: [...] Treatment to include the following as indicated: 66307 Therapeutic Exercise, 54082 Neuromuscular Re-education, 08393 Gait Training, 91219 Manual Therapy, 69939 Therapeutic Activity, and 30811 Self-care and ADL Training Next visit: re-evaluate [email or web address] Not available 10/08/2024 12:54:17 Plan of Treatment [...] By Organization Details Last Modified Time 08/01/2024 [id number] Patient instruct ed to inform attending physical therapist of any apprehension, pain, discomfort, or change in symptoms throughout the course of treatment. Patient verbalized understanding and agreed to comply. [email or web address] Not available 08/01/2024 15:14:32 08/22/2024 [id number] Patient instruct ed to inform attending physical therapist of any apprehension, pain, discomfort, or change in symptoms throughout the course of treatment. Patient verbalized understanding and agreed to comply. [email or web address] Not available 08/22/2024 08:02:23 09/11/2024 [id number] Patient instruct ed to inform attending physical therapist of any apprehension, pain, discomfort, or change in symptoms throughout the course of treatment. Patient verbalized understanding and agreed to comply. Not available 09/11/2024 12:01:03 09/24/2024 [id number] Patient instruct ed to inform attending physical therapist of any apprehension, pain, discomfort, or change in symptoms throughout the course of treatment. Patient verbalized understanding and agreed to comply. [email or web address] Not available 09/24/2024 12:31:56 10/08/2024 [id number] Patient instruct ed to inform attending physical therapist of any apprehension, pain, discomfort, or change in symptoms throughout the course of treatment. Patient verbalized understanding and agreed to comply. [email or web address] Not available 10/08/2024 12:34:40 Reason for Referral [...] cular joint degene rative change . Maria grullon Physic kt: Yolanda Collins ms [facility] (Imaging) [address], [place], [address], 07/01/2024 12:57:33 Result Notes None recorded. Procedures Surgical History Date Name Laterality Status Provider Name and Address Organization Details Recorded Time Marylin - Colonoscopy completed Brian Coulter MD [address] [place] [address], [phone], [facility] 09/15/2023 13:36:30 Imaging Results Imaging Date Name Status LastModified by Organiz ation Details LastModified Time 07/01/2024 XR, shoulder completed [facility] (Imaging) [address], [place], [address], 07/01/2024 12:57:33 Procedure Notes None recorded. Medical Equipment None Reported. Allergies Allergen ID Allergen Name Allergen Category Reaction Reaction Severity Criticality Documentation Date Start Date Code Code System Note Provider Name and Address Organization Details Recorded Time 216499 Product containin g penicilli n (product) medicatio n rash Not available Not available 09/14/2023 09476 8001 SNOMED Amanda [facility] RN [facility] 14:57:40 Medications Name Sig Start Date Stop Date [...] MOUTH EVERY DAY 06/10 completed stopped at [facility] while inpt Not Available Not Available Not [...] Not Available Not Avai lable Fluzone High-Dose 2014- (PF) 180 mcg/0.5 mL intramusc ular syringe TO BE ADMINIST ERED BY PHARMACI ST FOR IMMUNIZA TION active Not Available Not Available No t Available Fluzone High-Dose 6572-6656 (PF) 180 mcg/0.5 mL intramusc ular syringe TO BE ADMINIST ERED BY A PHARMACI ST 07/04 completed Not Available Not Available Not Available Fluzone High-Dose 5002-7016 (PF) 180 mcg/0.5 mL intramusc ular syringe ADMINIST ERED BY [facility] 07/07 completed Not Available Not Available Not Available Fluzone High-Dose (PF) 180 mcg/0.5 mL intramusc ular syringe TO BE ADMINIST ERED BY PHARMACI ST FOR IMMUNIZA TION 08/28 completed Not Available Not Available Not Available Fluzone High-Dose (PF) 180 mcg/0.5 mL intramusc ular syringe 09/16 completed Not Available Not Available Not Available Fluad Quad 0180-3402 (65yr up)(PF) 60 mcg (15 mcg x [...] LastModified by Organizat ion Details LastModified Time Do You Have An Advance Directive? No Given Today 08/26/2009 [email or web address] Information not available 08/26/2009 What Is Your Level Of Alcohol Consumption? Occasional 1-2 Month [email or web address] Information not available 09/16/2019 Do You Wear A Helmet When Biking? Yes Information not available 07/04/2016 What Is Your Level Of Caffeine Consumption? Moderate 1-2 Cups Daily [email or web address] Information not available 09/11/2018 How Much Tobacco Do You Chew? None Information not available 07/04/2016 Are You Currently Employed? No [email or web address] Information not available 07/20/2022 What Type Of Diet Are You Following? REGULAR Information not available 07/04/2016 Education 4 Year College Information not available 07/04/2016 What Is Your Occupation? Retired [employer] Information not available 07/07/2017 Have There Been Any Changes To Your Family Or Social Situation? No [email or web address] Information not available 07/20/2022 How Many Days In The Past Year Have You Had A Heavy Drinking Consumption (4+ Female, 5+ Male)? 0 Information not available 08/16/2012 Are There Any Guns Present In Your Home? No Information not available 07/04/2016 Do You Use Insect Repellent Routinely? No [email or web address] Information not available 07/20/2022 Live Alone Or [...] Of Your Most Recent Tobacco Screening? 07/29/2024 [email or web address] Information not available 07/29/2024 How Many Children Do You Have? 2 [email or web address] Information not available 09/11/2018 What Is Your Relationship Status? [email or web address] Information not available 07/20/2022 Do You Use Your Seat Belt Or Car Seat Routinely? Yes Information not available 07/20/2022 Seat Belts Used Routinely Yes Information not available 07/04/2016 Smoke Alarm In Home Yes Information not available 07/04/2016 Do You Have Smoke And Carbon Monoxide Detectors In Your Home? Yes Information not available 07/20/2022 Are You Passively Exposed To Smoke? No Information not available 07/20/2022 General Stress Level Low Information not available 07/04/2016 Do You Use Sunscreen Routinely? Yes Information not available 07/04/2016 Sex: Male Functional Status Question Answer Note LastModified by Organizat ion Details LastModified Time What is your exercise level? Moderate 3 times a week [email or web address] Information not available 07/20/2022 Mental Status None recorded. Family History Nothing Reported. Medical History Condition Response NEUROLOGIC N EYE N RENAL / GENITOURINARY N HEMATOLOGIC N INFECTIOUS DISEASE N GASTROINTESTINAL N METABOLIC N SKIN Y CARDIOVASCULAR N MUSCULOSKELETAL N ENDOCRINE N RHEUMATOLOGIC N PSYCHIATRIC N CANCER N Past Encounters Encounter ID Performer Location Encounter Start Date Encounter Closed Date Diagnosis/Indication Diagnosis SNOMED-CT Code Diagnosis ICD10 Code Diagnosis Note [id number] [facility] [address] [place] [address] 06/10/2000 11:15:00 08/13/2008 02:02:29 [id number] YUNIOR [facility], OFFICE [address] [place] [address] 08/01/2000 08:00:00 08/13/2008 02:02:29 [id number] Physical Therapy, [facility] [address] [place] [address] 08/04/2000 08:30:00 08/13/2008 02:02:29 [id number] YUNIOR [facility], OFFICE [address] [place] [address] 08/21/2000 08:30:00 08/13/2008 02:02:29 [id number] YUNIOR [facility], [place]ICE [address] [place] [address] 04/19/2001 15:30:00 08/13/2008 02:02:29 [id number] FP, [facility], OFFICE [address] [place] [address] 06/11/2001 16:45:00 08/13/2008 02:02:29 [id number] FP [facility], OFFICE [address] [place], [place] [address] 10/04/2001 16:00:00 08/13/2008 02:02:29 [id number] [facility], OFFICE [address] [place] [address] 11/30/2001 08:00:00 08/13/2008 02:02:29 [id number] FP [facility], OFFICE [address] [place] [address] 04/10/2002 08:53:06 08/13/2008 02:02:29 [id number] FP [facility], OFFICE [address] [place] [address] 02/17/2003 15:43:41 08/13/2008 02:02:29 [id number] FP [facility], OFFICE [address] [place] [address] 09/04/2003 07:54:34 09/04/2003 15:46:23 [id number] FP [facility], OFFICE [address] [place] [address] 10/15/2004 14:05:05 2004 09:21:19 [id number] [facility] - [facility] [address] [place] [address] 2004 07:34:47 2004 08:22:46 [id number] [facility], OFFICE [address] [place] [address] 10/25/2004 15:53:33 10/26/2004 09:18:38 [id number] [facility], OFFICE [address] [place] [address] 11/05/2004 12:11:51 11/05/2004 17:39:29 [id number] FP [facility], OFFICE [address] [place] [address] 12/03/2004 10:07:06 12/03/2004 11:47:44 [id number] [facility] , [facility] [address] [place] [address] 08/08/2006 14:05:04 08/09/2006 10:57:58 [id number] , [facility], OFFICE [address] [place] [address] 08/08/2006 13:47:50 08/08/2006 14:40:47 [id number] [facility], OFFICE [address] [place] [address] 09/27/2006 09:30:31 09/28/2006 08:48:32 [id number] , [facility], OFFICE [address] [place] [address] 10/11/2006 16:13:35 10/12/2006 08:19:05 [id number] , [facility], OFFICE [address] [place] [address] 11/16/2007 08:29:41 08/13/2008 02:02:29 [id number] [facility], OFFICE [address] [place] [address] 05/20/2008 08:15:11 08/13/2008 02:02:29 [id number] [facility] - [facility] [address] [place] [address] 05/20/2008 08:37:08 05/20/2008 08:37:16 [id number] , [facility], OFFICE [address] [place] [address] 08/26/2009 14:38:01 08/27/2009 09:51:57 [id number] [facility], [facility] [address] [place] [address] 03/11/2011 08:56:07 03/14/2011 08:13:42 [id number] , [facility], [address]ICE [address] [place] [address] 07/23/2011 11:33:03 07/23/2011 11:56:38 [id number] Reggie No III, MD , [facility], [facility] [address] [place] [address] 05/24/2012 11:26:48 05/24/2012 12:02:44 [id number] Jass Randolph MD [facility] , [facility] [address] [place] [id number] 06/21/2012 10:13:33 06/25/2012 13:59:47 [id number] Reggie No III, MD , [facility], OFFICE [address] [place] [address] 08/16/2012 10:23:47 08/16/2012 10:42:10 [id number] Jasmine Denise MA , [facility] OFFICE [address] [place] [address] [place] [address] 05/28/2013 09:35:53 05/28/2013 10:02:00 [id number] Kathleen Teran MA , [address] [place] [address] 12/26/2013 09:34:21 12/26/2013 10:25:52 [id number] [facility], [address] [place] [address] 12/30/2013 14:12:35 12/31/2013 09:44:56 [id number] Be[facility], [address] [place] [address] 01/07/2014 09:30:05 01/08/2014 10:33:[id number] [place] [address] 06/11/2014 10:34:28 06/11/2014 11:11:41 [id number] [facility], [address] [place] [address] 08/04/2014 10:07:06 08/04/2014 14:21:28 [id number] Lyn Rowe MD [address] [place] [address] 02/02/2015 16:22:58 02/03/2015 20:07:10 [id number] Lyn Rowe MD [address] [place] [address] 07/03/2015 10:08:26 07/03/2015 11:08:29 [id number] Stephanie Gonzalez MD , [address] [place] [address] 12/24/2015 09:41:45 12/25/2015 10:38:34 [id number] Lyn Rowe MD [address] [place] [address] 07/04/2016 10:55:54 07/04/2016 11:59:19 [id number] Lyn Rowe MD [address] [place] [address] 07/07/2017 09:08:19 07/07/2017 10:08:13 [id number] , [facility], [address] [place] [address] 08/14/2017 10:38:16 08/14/2017 11:19:55 [id number] Lyn Rowe MD , [address] [place] [address] 08/18/2017 11:39:13 08/23/2017 15:30:34 [id number] Rosalie Milian i, PT Physical Therapy, [address] [place] [address] 09/04/2017 11:23:16 09/04/2017 13:35:11 [id number] Rosalie Milian i, PT Physical Therapy, [address] [place] [address] 09/11/2017 10:56:39 09/11/2017 13:40:06 [id number] Rosalie Milian i, PT Physical Therapy, [address] [place] [address] 09/19/2017 15:30:02 09/19/2017 16:52:23 [id number] Perla Marks MD , [address] [place] [address] 11/13/2017 11:57:01 11/13/2017 12:29:45 [id number] Lyn Rowe MD , [address] [place] [address] 01/29/2018 09:40:54 01/29/2018 16:53:46 [id number] Lyn Rowe MD , [address] [place] [address] 08/28/2018 09:53:05 08/28/2018 10:56:17 [id number] Lyn Rowe MD , [address] [place] [address] 09/11/2018 13:53:09 09/11/2018 15:30:41 [id number] Perla Marks MD , [address] [place] [address] 03/06/2019 11:22:26 03/06/2019 11:53:33 [id number] IVY Larios , [facility], [address] [place] [address] 05/30/2019 09:23:47 05/30/2019 10:23:32 [id number] Lyn Rowe MD , [address] [place] [address] 09/16/2019 08:29:22 09/16/2019 09:32:51 [id number] Zayda Fang RN [facility], [address] [place] [address] 02/07/2020 07:00:26 02/07/2020 12:41:53 [id number] Rosalie Banuelos DPM Podiatry, [address] [place] [address] 06/26/2020 08:03:30 06/26/2020 14:05:17 [id number] Lyn Rowe MD [address] [place] [address] 09/21/2020 08:24:35 09/23/2020 18:14:03 [id number] Rosalie Banuelos DPM Podiatry, [address] [place] [address] 10/12/2020 09:57:35 10/12/2020 10:59:56 [id number] Gianna Mead D.O. [address] [place] [address] 01/14/2022 11:50:57 01/14/2022 12:59:59 [id number] Rica Velazquez NP , [address] [place] [address] 01/19/2022 13:41:03 01/19/2022 15:51:19 [id number] Lyn Rowe MD , [address] [place] [address] 07/20/2022 10:59:44 07/20/2022 11:56:11 [id number] Lyn Rowe MD , [address] [place] [address] 1 07/26/2023 08:26:18 07/30/2023 18:12:31 [id number] Lori Crowell RN Endoscopy , [address] [place] [address] 09/15/2023 12:04:54 09/15/2023 14:11:32 [id number] Rosalie Banuelos DPM Podiatry, [address] [place] [address] 10/16/2023 08:56:37 10/16/2023 09:33:10 [id number] CAROLANN SUMNER PA-C , [facility], OFFICE [address] [place] [address] [place] [address] 07/01/2024 09:51:23 07/01/2024 10:49:34 [id number] Lyn Rowe MD , [facility], OFFICE [address] [place] [address] [place] [address] 07/29/2024 08:28:16 07/29/2024 09:28:37 [id number] MAGGIE DEL RIO PT, DPT Physical Therapy, [address] [address] 08/01/2024 13:06:42 08/01/2024 15:15:37 [id number] MAGGIE DEL RIO PT, DPT Physical Therapy, [address] [address] 08/22/2024 14:31:08 08/22/2024 15:00:53 [id number] MAGGIE DEL RIO, PT, DPT Physical Therapy, [address] [place] [address] 09/11/2024 11:56:04 09/11/2024 12:59:04 [id number] MAGGIE DEL RIO PT, DPT Physical Therapy, [address] [place] [address] 09/24/2024 12:22:49 09/24/2024 12:58:46 [id number] MAGGIE DEL RIO, PT, DPT Physical Therapy, [address] [address] 10/08/2024 12:29:13 10/08/2024 12:58:41 Health Concerns Section Related Observation LastModified by Organization Detai ls LastModified Time None Recorded Concern Status LastModified by Organization Details LastModified Time None Recorded Advance Directives Directive N: given today 08/26/2009 Payers Encounter Date Sequence Insurance Name Policy Number Policy Harvey Covered Member ID Harvey Member ID Guarantor Name 08/01/2024 1 [employer] MED[employer] ADVANTAGE PLAN (MEDICARE REPLACEMENT HMO) [id number] Herman Guadarrama [id number] Herman Guadarrama 08/22/2024 1 [employer] MED[employer] ADVANTAGE PLAN (MEDICARE REPLACEMENT HMO) [id number] Herman Guadarrama [id number] Herman Guadarrama 09/11/2024 1 [employer] ADVANTAGE PLAN (MEDICARE REPLACEMENT HMO) [id number] Herman Guadarrama [id number] Herman Guadarrama 09/24/2024 1 [employer] ADVANTAGE PLAN (MEDICARE REPLACEMENT HMO) [id number] Herman Guadarrama [id number] Herman Guadarrama 10/08/2024 1 [employer] MED[employer] ADVANTAGE PLAN (MEDICARE REPLACEMENT HMO) [id number] Herman Guadarrama [id number] Herman Guadarrama
[2024-10-23 11:15] LABS: Cholesterol 111 mg/dL (<200); HDL Cholesterol 43 mg/dL (>40); LDL Cholesterol Calculated 55 mg/dL (<100); Triglycerides 67 mg/dL (<150)
[2024-10-23 12:11] LABS: Reflex LDLD? No
== END 2024-10-23 07:23 | disposition home or self-care (01) ==
LOC: HO.HMGCLDS 07:22
PROVIDERS: PCP Internal Medicine; Visit Provider Internal Medicine Cardiovascular Disease
DX: E78.5 Hyperlipidemia, unspecified (principal)
CPT/HCPCS: 36415; 80061

== ENCOUNTER 2025-04-15 14:08 | Outpatient (REF) | payer MEDICARE, SELFPAY ==
[2025-04-15 16:39] LABS: MANUAL DIFF FLAG NO
[2025-04-15 16:43] LABS: Hematocrit 42.9 % (42.0-52.0); Hemoglobin 14.5 g/dl (14.0-18.0); Imm Gran Abs Auto 0.02 X10*3/uL (0.00-0.03); Imm Gran Pct Auto 0.3 % (0.0-0.4); Lymphocytes Absolute Auto 2.2 X10*3/uL (1.2-4.9); Mean Corpuscular HGB Conc 33.8 g/dl (31.0-36.0); Mean Corpuscular Hemoglobin 30.0 pg (27.0-33.0); Mean Corpuscular Volume 88.6 fL (80.0-98.0); NRBC Abs Auto 0.000 X10*3/uL (0.0-0.012); NRBC Pct Auto 0.0 /100WBC (0.0-0.2); Platelet Count 235 X10*3/uL (160-400); Red Blood Count 4.84 X10*6/uL (4.60-5.80); White Blood Count 7.6 X10*3/uL (4.8-10.8)
[2025-04-15 17:02] LABS: Anion Gap 12 (12-20); Blood Urea Nitrogen 20 mg/dL (9-16); Calcium 9.3 mg/dL (8.4-10.2); Carbon Dioxide 26 mmol/L (22-29); Chloride 110 mmol/L (96-108); Estimated Glomerular Filt Rate > 60; Potassium 3.6 mmol/L (3.3-5.1); Sodium 144 mmol/L (135-145)
--- OUTSIDE RECORDS SUMMARY | 2025-04-15 17:28 | XMS_ITS | Clinical Summary ---
Author Organization [facility] Address [address] [facility] [address] [place] [address] Phone Care Team Providers Care National Secretary Name Role Phone Jordon Rowe MD Primary Care Provider +1- [phone] Allergies Active Allergy Reactions Criticality Noted Date Comments Penicillins 11/02/2017 Medications atorvastatin (LIPITOR) 80 MG tablet Take 80 mg by mouth nightly. at bedtime 3 08/25/2017 Active metoprolol succinate (TOPROL-XL) 50 MG 24 hr tablet TAKE HALF A TABLET BY MOUTH EVERY DAY 2 08/26/2017 Active aspirin 81 MG EC tablet Take 81 mg by mouth daily. Active multivitamins capsule Take 1 capsule by mouth daily. Active Active Problems Problem Noted Date Diagnosed Date Bilateral knee pain 11/02/2017 Family History Medical History Relation Comments No Known Problems Brother No Known Problems Father No Known Problems Maternal Aunt No Known Problems Maternal Grandfather No Known Problems Maternal Grandmother No Known Problems Maternal Uncle Infl. arthritis Mother No Known Problems Paternal Aunt No Known Problems Paternal Grandfather No Known Problems Paternal Grandmother No Known Problems Paternal Uncle No Known Problems Sister Cancer Neg Hx Clotting disorder Neg Hx Collagen disease Neg Hx Depression Neg Hx Diabetes Neg Hx Dislocations Neg Hx Gout Neg Hx Osteoporosis Neg Hx Scoliosis Neg Hx Relation Status Comments Brother Father Maternal Aunt Maternal Grandfather Maternal Grandmother Maternal Uncle Mother Paternal Aunt Paternal Grandfather Paternal Grandmother Paternal Uncle Sister Social History Tobacco Use Types Packs/Day Years Used Date Smoking Tobacco: Never Smokeless Tobacco: Never Alcohol Use Standard Drinks/Week Comments Yes 0 (1 standard drink = 0.6 oz pur e alcohol) Education Answer Date Recorded Are you interested in more education? Not on gladis e 11/18/2022 Are you concerned about learning? Not on file 11/18/2022 No 11/18/2022 No 11/18/2022 Digital Access Answer Date Recorded No 12/17/2022 No 12/17/2022 No 12/17/2022 Reliable internet access at home? Not on file 12/17/2022 Device with a working camera? Not on file Sex and Gender Information Value Date Recorded Sex Assigned at Not on file Legal Sex Male 10:07 PM EDT Gender Identity Not on file Sexual Orientation Not on file Last Filed Vital Signs Vital Sign Reading Time Taken Comments Blood Pressure - - Pulse - - Temperature - - Respiratory Rate - - Oxygen Saturation - - Inhaled Oxygen Concentration - - Weight 70.3 kg (155 lb) 11/02/2017 9:44 AM EDT Height 172.7 cm (5' 8 ) 11/02/2017 9:44 AM EDT Body Mass Index 23.57 11/02/2017 9:44 AM EDT Plan of Treatment Health Maintenance Due Date Last Done Comments LIPID PANEL 1946 DEPRESSION SCREENING 1958 HEPATITIS C SCREENING 1964 ZOSTER VACCINES (1 of 2) 1996 PNEUMOCOCCAL VACCINES (50+ years) (2 of 2 - PCV) 05/24/2013 05/24/2012 Adult Td,Tdap Booster 10/15/2014 10/15/2004 RSV VACCINE (1 - 1-dose 75+ series) 2021 INFLUENZA VACCINE (#1) 2025 , 04/24/2019, 04/16/2018, Additional history exists COVID-19 VACCINE (2 - 2024- season) 2025 09/25/2020 SMOKING STATUS SCREENING (Once After 26 Yrs) Completed 11/02/2017 HEPATITIS A VACCINES Aged Out No long er eligible based on patient's age to complete this topic HIB VACCINES Aged Out No longer eligi ble based on patient's age to complete this topic MENINGOCOCCAL VACCINES (ACWY) Aged Out No longer eligible based on patient's age to complete this topic MENINGOCOCCAL VACCINES (B) Aged Out N o longer eligible based on patient's age to complete this topic Medical Devices Not on file Insurance [facility] MEDICARE HMO REPLACEMENT [facility] MEDICARE [place] [address] [place] [address] MEDICARE HMO REPLACEMENT [facility] MEDICARE HMO REPLACEMENT MEDICARE [place] [address] [place] [address] [address] [place] [address] [place] [address] MEDICARE HMO REPLACEMENT [facility] MEDIC[employer] HMO REPLACEMENT [employer] MEDIC[employer] HMO REPLACEMENT Care Teams National Secretary Relationship Specialty Start Date End Date Jordon Rowe MD [address] [place] [id number] [email or web address] PCP - General Internal Medicine 10/16/17 Additional Source Comments The information contained in this document represents components of the legal health record. It is not the complete legal health record.[facility]
--- OUTSIDE RECORDS SUMMARY | 2025-04-15 17:28 | XMS_ITS | Clinical Summary ---
Author Organization [facility] Address [address] [place] [address] Care Team Providers Care Press Operator Apprentice Name Role Phone Jordon Rowe MD Primary Care Provider +1- [phone] Medications metoprolol succinate (TOPROL-XL) 50 mg 24 hr tabletIndicati ons:Non-ST elevation (NSTEMI) myocardial infarction (CMS/HCC V24, CMS/HCC V28) TAKE 1/2 TABLET (25 MG TOTAL) BY MOUTH EVERY DAY. 45 tablet 1 03/21/20 25 Active atorvastatin (LIPITOR) 80 mg tabletIndicati ons:Non-ST elevation (NSTEMI) myocardial infarction (CMS/HCC V24, CMS/HCC V28) Take 1 tablet (80 mg total) by mouth at bedtime. at bedtime 90 tablet 3 03/27/20 25 Active metoprolol succinate (TOPROL-XL) 50 mg 24 hr tabletIndicati ons:Non-ST elevation (NSTEMI) myocardial infarction (CMS/HCC V24, CMS/HCC V28) TAKE 1/2 TABLET (25 MG TOTAL) BY MOUTH EVERY DAY. 45 tablet 1 09/26/19 25 025 Discontinued atorvastatin (LIPITOR) 80 mg tabletIndicati ons:Non-ST elevation (NSTEMI) myocardial infarction (CMS/HCC V24, CMS/HCC V28) TAKE 1 TABLET BY MOUTH EVERY DAY AT BEDTIME 90 tablet 12/26/19 25 025 Discontinued(Re order) Social History Tobacco Use Types Packs/Day Years Used Date Smoking Tobacco: Never Smokeless Tobacco: Never Alcohol Use Standard Drinks/Week Comments Yes 0 (1 standard drink = 0.6 oz pur e alcohol) Sex and Gender Information Value Date Recorded Sex Assigned at Not on file Legal Sex Male 3:18 PM EST Gender Identity Not on file Sexual Orientation Not on file Obstetrics History Last Filed Vital Signs Vital Sign Reading Time Taken Comments Blood Pressure 120/74 08/02/2023 9:25 AM EST Sit ting L Arm Pulse 93 08/02/2023 9:25 AM EST Temperature - - Respiratory Rate - - Oxygen Saturation - - Inhaled Oxygen Concentration - - Weight 73.5 kg (162 lb) 08/02/2023 9:25 AM EST Height 170.2 cm (5' 7 ) 08/02/2023 9:25 AM EST Body Mass Index 25.37 08/02/2023 9:25 AM EST Plan of Treatment Upcoming Encounters Date Type Department Care Team (Late st Contact Info) Description 04/21/2025 11:20 AM EDT Office Visit [facility] [address] [place] [address] Juan Perkins MD [address] [place] [address] [address] [place] [address] Health Maintenance Due Date Last Done Comments DTaP,Tdap,and Td Vaccines (1 - Tdap) 1965 Pneumococcal Vaccine: 50+ Ye ars (1 of 1 - PCV) 1996 Zoster Vaccines (1 of 2) 1996 RSV Immunization Adult Patie nts (1 - 1-dose 75+ series) 2021 Cholesterol Screening (Lipid Panel) 06/22/2022 Falls Risk Assessment 06/22/2022 Hepatitis C Screening 06/22/2022 Medicare Annual Wellness Visit 06/22/2022 Social Influencers of Health Screening 06/22/2022 Depression Screening 07/24/2024 Influenza Vaccine (#1) 2025 COVID-19 Vaccine (2 - 2023-2 5 season) 2025 03/26/2025 HIB Vaccines Aged Out No longer eligi ble based on patient's age to complete this topic HPV Vaccines Aged Out No longer eligi ble based on patient's age to complete this topic Hepatitis A Vaccines Aged Out No long er eligible based on patient's age to complete this topic Hepatitis B Vaccines Aged Out No long er eligible based on patient's age to complete this topic IPV Vaccines Aged Out No longer eligi ble based on patient's age to complete this topic MMR Vaccines Aged Out No longer eligi ble based on patient's age to complete this topic Meningococcal ACWY Vaccine Aged Out N o longer eligible based on patient's age to complete this topic Meningococcal B Vaccine Aged Out No l onger eligible based on patient's age to complete this topic RSV Immunization Patients Un lon 20 months Aged Out No longer eligible b ased on patient's age to complete this topic Varicella Vaccines Aged Out No longer eligible based on patient's age to complete this topic Insurance [employer] MEDICARE ADVANTAGE Care Teams Press Operator Apprentice Relationship Specialty Start Date End Date Jordon Rowe MD [address] [place] [address] [address] [place] [phone] PCP - General 06/05/16
--- OUTSIDE RECORDS SUMMARY | 2025-04-15 17:28 | XMS_ITS | Encounter Summary ---
Author Organization [facility] Address [address] [address] Phone Care Team Providers Care Vegetable Grader Name Role Phone Jordon Rowe MD Primary Care Provider +1- [phone] Encounter Details Date Type Department Care Team (Late st Contact Info) Description 08/28/2018 Ancillary Orders Virtual Department [address] [place] [address] Jordon Rowe MD [address] [place] [address] [email or web address] Left testicular pain Social History Tobacco Use Types Packs/Day Years Used Date Smoking Tobacco: Never Smokeless Tobacco: Never Alcohol Use Standard Drinks/Week Comments Yes 0 (1 standard drink = 0.6 oz pur e alcohol) Sex and Gender Information Value Date Recorded Sex Assigned at Not on file Legal Sex Male 10:07 PM EDT Gender Identity Not on file Sexual Orientation Not on file documented as of this encounter Plan of Treatment Not on file documented as of this encounter Results * US SCROTUM AND TESTICLES (08/29/2018 2:32 PM EST) Anatomical Region Laterality Modality Pelvis, Scrotum/Testes, Testes U ltrasound 08/29/2018 2:40 PM EST Impressions 08/29/2018 2:42 PM EST Minimal right testicular microlithiasis but otherwise normal scrotal ultrasound. No evidence of torsion, orchitis, mass or other source of left-sided pain is apparent. POS [id number] Narrative 08/29/2018 2:42 PM EST No comparison Normal, testicular appearance with homogeneous echotexture, symmetrical in size and blood flow, and no focal masses. There are two minute calcifications in the right testicle. None are seen in the left. No associated masses. Neither epididymis is enlarged nor hyperemic. No epididymal cysts or masses. No varicocele or hydrocele. Procedure Note Red Rose MD - 08/29/2018 No comparison Normal, testicular appearance with homogeneous echotexture, symmetrical insize and blood flow, and no focal masses. There are two minute calcifications in the right testicle. None are seenin the left. No associated masses. Neither epididymis is enlarged nor hyperemic. No epididymal cysts ormasses. No varicocele or hydrocele. IMPRESSION: Minimal right testicular microlithiasis but otherwise normal scrotalultrasound. No evidence of torsion, orchitis, mass or other source ofleft-sided pain is apparent. POS [id number] Jordon Rowe MD IMG US SCROTUM/PENIS Final Result documented in this encounter Visit Diagnoses Diagnosis Left testicular pain Left testicular pain documented in this encounter Care Teams Vegetable Grader Relationship Specialty Start Date End Date Jordon Rowe MD [address] [place] [address] PCP - General Internal Medicine 10/16/17 documented as of this encounter Additional Source Comments The information contained in this document represents components of the legal health record. It is not the complete legal health record.[facility]
--- OUTSIDE RECORDS SUMMARY | 2025-04-15 17:28 | XMS_ITS | Encounter Summary ---
Author Organization [facility] Address [address] [place] [address] [place] [address] Phone Care Team Providers Care Field Merchandiser Name Role Phone Jorodn Rowe MD Primary Care Provider +1- [phone] Encounter Details Date Type Department Care Team (Latest Contact Info) Description 01/29/2020 Transcribe Orders Virtual Department [address] [place] [address] Brian Coulter MD [address] [place] [address] [email or web address] Pre-operative laboratory examination (Primary Dx) Social History Tobacco Use Types Packs/Day Years [...] documented as of this encounter Results * COVID-19 PCR Order (02/04/2020 2:27 PM EDT) Specimen Source NASOPHARYNGEAL SWAB (BRICKLAYER APPRENTICE) [facility] COVID Testing Status In-house testing being performed [facility] Other 02/04/2020 2:27 PM EDT 02/04/2020 3:01 PM EDT us Brian Coulter MD BODY FLUIDS AND STOOLS ORDERABLE S Final Result [address] [address] documented in this encounter Visit Diagnoses Diagnosis Pre-operative laboratory examination- Primary Pre-procedural laboratory examination documented in this encounter Care Teams Field Merchandiser Relationship Specialty Start Date End Date Jordon Rowe MD [address] [place] [phone] [email or web address] PCP - General Internal Medicine 10/16/17 documented as of this encounter Additional Source Comments The information contained in this document represents components of the legal health record. It is not the complete legal health record.[facility]
== END 2025-04-15 14:09 | disposition home or self-care (01) ==
LOC: HO.HMGCLDS 14:08
PROVIDERS: Visit Provider Internal Medicine Cardiovascular Disease
DX: I21.4 Non-ST elevation (NSTEMI) myocardial infarction (principal)
CPT/HCPCS: 36415; 80048; 85025

== ENCOUNTER 2025-04-24 10:22 | Outpatient (REF) | payer MEDICARE, SELFPAY ==
--- OUTSIDE RECORDS SUMMARY | 2025-04-21 11:20 | XMS_ITS | Encounter Summary ---
Author Organization [facility] Address [address] [place] [address] Care Team Providers Care Project Builder Name Role Phone Jordon Rowe MD Primary Care Provider +1- [phone] Reason for Visit * Reason Comments Follow-up Encounter Details Date Type Department Care Team (Late st Contact Info) Description 04/21/2025 11:20 AM EDT Office Visit [facility] [address] [place] [phone] Juan Turk MD [address] [place] [address] NSTEMI (non-ST elevated myocardial infarction) (CMS/HCC V24, CMS/HCC V28) (Primary Dx) Social History Tobacco Use Types [...] on file documented as of this encounter Last Filed Vital Signs Vital Sign Reading Time Taken Comments Blood Pressure 142/80 04/21/2025 11:23 AM EDT Pulse 69 04/21/2025 11:23 AM EDT Temperature - - Respiratory Rate - - Oxygen Saturation 95% 04/21/2025 11:23 AM EDT Inhaled Oxygen Concentration - - Weight 71.7 kg (158 lb) 04/21/2025 11:23 AM EDT Height 171.5 cm (5' 7.5 ) 04/21/2025 11:23 AM ED T Body Mass Index 24.38 04/21/2025 11:23 AM EDT documented in this encounter Progress Notes * Juan Turk MD - 04/21/2025 11:20 AM EDT Images from the original note were not included. [facility] MANAGER: Juan Turk MD PCP: Jordon Rowe MD HPI: Herman Guadarrama is a 79 y.o. old male with with a history of coronary disease. He was last here in July 2023. In May 2016 he had a non-STEMI and cardiac cath revealed a 50% LAD lesion. Possible small thrombus in OMB 1. I had a small plaque rupture. At the time he got to the Paint Stock Clerk thrombus was essentially gone. Stress echo 2019 normal. When I last saw him he was doing fine. At last visit was March 2022. When I last saw him he was doing beautifully. He was exercising regularly without symptoms. History of Present Illness The patient is a 79-year-old male who presents for evaluation of blood pressure and cholesterol management. He reports feeling well overall, with no complaints of chest pain or difficulty breathing. He does not monitor his blood pressure at home but notes that it has consistently been in the 120s during previous checks. His last visit was in July 2023. He continues to engage in hiking activities. His current medications include metoprolol, atorvastatin, and baby aspirin. SOCIAL HISTORY Exercise: Hiking ACTIVE MEDICATIONS: Current Outpatient Medications Medication Instructions atorvastatin (LIPITOR) 80 mg, oral, Nightly, at bedtime metoprolol succinate (TOPROL-XL) 50 mg 24 hr tablet TAKE 1/2 TABLET (25 MG TOTAL) BY MOUTH EVERY DAY. PAST MEDICAL HISTORY: Problem List[1] ALLERGIES: Allergies[2] SOCIAL HISTORY: Social History Tobacco Use Smoking status: Never Smokeless tobacco: Never Substance Use Topics Alcohol use: Yes PHYSICAL EXAM: Vitals: 04/21/25 1123 BP: (!) 142/80 BP Location: Left arm Patient Position: Sitting BP Cuff Size: Small adult Pulse: 69 SpO2: 95% Weight: 71.7 kg (158 lb) Height: 1.715 m (67.5 ) Physical Exam Vitals reviewed: repeat L 144/72. Constitutional: Appearance: Normal appearance. Comments: Healthy appearing HENT: Head: Normocephalic. Eyes: Extraocular Movements: Extraocular movements intact. Pupils: Pupils are equal, round, and reactive to light. Neck: Vascular: No carotid bruit. Cardiovascular: Rate and Rhythm: Normal rate and regular rhythm. Pulses: Normal pulses. Heart sounds: Normal heart sounds. Pulmonary: Effort: Pulmonary effort is normal. Breath sounds: Normal breath sounds. Abdominal: General: Bowel sounds are normal. Palpations: Abdomen is soft. Musculoskeletal: Right lower leg: No edema. Left lower leg: No edema. Skin: General: Skin is warm and dry. Neurological: General: No focal deficit present. Psychiatric: Mood and Affect: Mood normal. Physical Exam Blood Pressure: 142/80 Heart: Normal heart sounds Lungs: Clear to auscultation bilaterally EKG: Normal Encounter Date: 04/21/25 ECG 12 lead Result Value Ventricular Rate ECG 69 Atrial Rate 69 P-R Interval 174 QRS Duration 90 Q-T Interval 406 QTc 435 P Wave [place] 61 R [place] 36 T [place] 32 ECG Interpretation Normal sinus rhythm Normal ECG No previous ECGs available *Note: Due to a large number of results and/or encounters for the requested time period, some results have not been displayed. A complete set of results can be found in Results Review. TESTING: Results Labs - Kidney function and electrolytes: 07/2023, Normal - Blood count: 07/2023, Normal - LDL: 07/2023, 63 - Total cholesterol: 07/2023, 132 - Triglycerides: 07/2023, 116 - HDL: 07/2023, 52 Diagnostic Testing - EKG: Normal ASSESSMENT/PLAN: Assessment & Plan 1. Blood pressure management: - Blood pressure reading today is 142/80, which is slightly elevated. - Advised to start checking blood pressure at home using a home blood pressure cuff. Return with his cuff to correlate - Currently on metoprolol, atorvastatin, and baby aspirin. - EKG results are within normal limits. 2. Cholesterol management: - Cholesterol levels checked in 07/2023: LDL 63, total cholesterol 132, triglycerides 116, HDL 52. - Values are within the desired range. - Currently on atorvastatin. Follow-up: Next scheduled visit in 1 year. Assessment & Plan NSTEMI (non-ST elevated myocardial infarction) (CMS/HCC V24, CMS/HCC V28) I have obtained verbal consent from Herman Guadarrama prior to the recording. I have advised Herman Guadarrama that he may refuse the recording and require the recording to be turned off at any time duringthis encounter. Thank you for allowing us to participate in the care of this patient. The patient will follow up in1 yr, sooner PRN. As per AHA guidelines and previously established plan of care by Dr. Juan Turk MD, we discussed the following today: 1. NSTEMI (non-ST elevated myocardial infarction) (CMS/HCC V24, CMS/HCC V28) [facility] [1] There is no problem list on file for this patient. [2] No Known Allergies documented in this encounter Plan of Treatment Not on file documented as of this encounter Procedures Procedure Name Priority Date/Time Associated Diagnosis Comments ECG 12-LEAD Routine 04/21/2025 11:27 AM EDT NSTEMI (non-ST elevated myocardial infarction) (CMS/HCC V24, CMS/HCC V28) documented in this encounter Results * ECG 12 lead (04/21/2025 11:27 AM EDT) Ventricular Rate ECG 69 BPM GEMUSE Atrial Rate 69 BPM GEMUSE P-R Interval 174 ms GEMUSE QRS Duration 90 ms GEMUSE Q-T Interval 406 ms GEMUSE QTc 435 ms GEMUSE P Wave [place] 61 degrees GEMUSE R Miami 36 degrees GEMUSE T Miami 32 degrees GEMUSE ECG Interpretation Normal sinus rhythm Normal ECG No previous ECGs available Confirmed by Chente TURK JAY ([id number]) on 04/21/2025 11:58:16 AM GEMUSE 04/21/2025 11:2 7 AM EDT 04/21/2025 11:58 AM EDT us Juan Turk MD ECG ORDERABLES Final Result GEMUSE documented in this encounter Visit Diagnoses Diagnosis NSTEMI (non-ST elevated myocardial infarction) ([facility] V24, [facility] V28)- Primary Acute myocardial infarction, subendocardial infarction, episode of care unspecified documented in this encounter Care Teams Project Builder Relationship Specialty Start Date End Date Jordon Rowe MD [address] [place] [address] [address] [place] [phone] PCP - General 06/05/16 documented as of this encounter
--- OUTSIDE RECORDS SUMMARY | 2025-04-24 09:30 | XMS_ITS | Encounter Summary ---
Author Organization [facility] Address [address] [place] [address] Care Team Providers Care Electrical Designer Name Role Phone Jordon Rowe MD Primary Care Provider +1- [phone] Reason for Visit * Reason Comments Blood Pressure Check Encounter Details Date Type Department Care Team (Latest Contact Info) Description 04/24/2025 9:30 AM EDT Clinical Support [facility] [address] [facility] [address] [place] [phone] Hypertension, unspecified type (Primary Dx) Social History Tobacco Use Types [...] Sign Reading Time Taken Comments Blood Pressure 154/66 04/24/2025 9:52 AM EDT Pulse 82 04/24/2025 9:52 AM EDT Temperature - - Respiratory Rate - - Oxygen Saturation - - Inhaled Oxygen Concentration - - Weight - - Height - - Body Mass Index - - documented in this encounter Ordered Prescriptions Prescription Sig Dispense Quantity Refills Last Filled Start Date End Date losartan (COZAAR) 25 mg tablet Take 1 tablet (25 mg total) by mouth 1 (one) time each day. 30 each 11 04/24/2025 documented in this encounter Plan of Treatment Scheduled Orders Name Type Priority Associated Diagnoses Orde r Schedule Basic metabolic panel Lab Routine Hypertension, unspecified type 1 Occurrences starting 04/24/2025 until 04/24/2026 documented as of this encounter Visit Diagnoses Diagnosis Hypertension, unspecified type- Primary documented in this encounter Care Teams Electrical Designer Relationship Specialty Start Date End Date Jordon Rowe MD [address] [place] [address] [address] [place] [phone] PCP - General 06/05/16 documented as of this encounter
--- OUTSIDE RECORDS SUMMARY | 2025-04-24 11:54 | XMS_ITS | Encounter Summary ---
Author Organization [facility] Address [address] [address] Phone Care Team Providers Care Levers Lace Machine Operator Name Role Phone Jordon Rowe MD Primary Care Provider +1- [phone] Encounter Details Date Type Department Care Team (Late st Contact Info) Description 08/28/2018 Ancillary Orders Virtual Department [address] [place] [phone] Jordon Rowe MD [address] [place] [address] [email or web address] Left testicular pain Social History [...] source of left-sided pain is apparent. POS [id number] Narrative 08/29/2018 2:42 PM EST No comparison [...] other source ofleft-sided pain is apparent. POS [id number] Jordon Rowe MD IMG US SCROTUM/PENIS Final Result documented in this encounter Visit Diagnoses Diagnosis Left testicular pain Left testicular pain documented in this encounter Care Teams Levers Lace Machine Operator Relationship Specialty Start Date End Date Jordon Rowe MD [address] [place] [address] PCP - General Internal Medicine 10/16/17 documented as of this encounter Additional Source Comments The information contained in this document represents components of the legal health record. It is not the complete legal health record.[facility]
--- OUTSIDE RECORDS SUMMARY | 2025-04-24 11:54 | XMS_ITS | Encounter Summary ---
Author Organization [place] [address] Care Team Providers Care Roller Inspector And Mender Name Role Phone Jordon Rowe MD Primary Care Provider [phone]- [phone] Reason for Visit * Reason Onset Date Comments appointment needed 04/22/2025 Encounter Details Date Type Department Care Team (Late st Contact Info) Description 04/22/2025 Telephone [facility] - [facility] [address] [facility] [address] [place] [phone] Fatmata Amezcua MA Social History Tobacco Use Types Packs/Day Years [...] on file documented as of this encounter Progress Notes * Juana Avila - 04/23/2025 10:48 AM EDT Appointment booked with patient. * Fatmata Amezcua MA - 04/22/2025 9:43 AM EDT ----- Message from Reece Perkins MD sent at 04/21/2025 11:59 AM EDT ----- Regarding: BP Have him return soon with his BP cuff to check BP documented in this encounter Plan of Treatment Not on file documented as of this encounter Visit Diagnoses Not on filedocumented in this encounter Care Teams Roller Inspector And Mender Relationship Specialty Start Date End Date Jordon Rowe MD [address] [place] [address] [address] [place] [phone] PCP - General 06/05/16 documented as of this encounter
--- OUTSIDE RECORDS SUMMARY | 2025-04-24 11:54 | XMS_ITS | Encounter Summary ---
Author Organization [facility] Address [address] [place] [address] [place] [address] Phone Care Team Providers Care Legal Billing Coordinator Name Role Phone Jordon Rowe MD Primary Care Provider +1- [phone] Encounter Details Date Type Department Care Team (Latest Contact Info) Description 01/29/2020 Transcribe Orders Virtual Department [address] [place] [address] Brian Coulter MD [address] [place] [phone] [email or web address] Pre-operative laboratory examination (Primary Dx) Social History [...] 2:27 PM EDT) Specimen Source NASOPHARYNGEAL SWAB (SENIOR WATER/WASTEWATER ENGINEER) [facility] COVID Testing Status In-house testing being performed [facility] Other 02/04/2020 2:27 PM EDT 02/04/2020 3:01 PM EDT us Brian Coulter MD BODY FLUIDS AND STOOLS ORDERABLE S Final Result [address] [address] documented in this encounter Visit Diagnoses Diagnosis Pre-operative laboratory examination- Primary Pre-procedural laboratory examination documented in this encounter Care Teams Legal Billing Coordinator Relationship Specialty Start Date End Date Jordon Rowe MD [address] [place] [phone] [email or web address] PCP - General Internal Medicine 10/16/17 documented as of this encounter Additional Source Comments The information contained in this document represents components of the legal health record. It is not the complete legal health record.[facility]
--- OUTSIDE RECORDS SUMMARY | 2025-04-24 11:54 | XMS_ITS | Clinical Summary ---
Author Organization [address] [facility] Address [address] [place] [address] Phone Care Team Providers Care Hog Ribber Name Role Phone Jordon Rowe MD Primary Care Provider +1- [phone] Allergies No known active allergies Medications metoprolol succinate (TOPROL-XL) 50 mg 24 hr tabletIndicatio ns:Non-ST elevation (NSTEMI) myocardial infarction (CMS/HCC V24, CMS/HCC V28) TAKE 1/2 TABLET (25 MG TOTAL) BY MOUTH EVERY DAY. 45 tablet 1 5 Active atorvastatin (LIPITOR) 80 mg tabletIndicatio ns:Non-ST elevation (NSTEMI) myocardial infarction (CMS/HCC V24, CMS/HCC V28) Take 1 tablet (80 mg total) by mouth at bedtime. at bedtime 90 tablet 3 5 Active losartan (COZAAR) 25 mg tablet Take 1 tablet (25 mg total) by mouth 1 (one) time each day. 30 each 11 5 Active atorvastatin (LIPITOR) 80 mg tabletIndicatio ns:Non-ST elevation (NSTEMI) myocardial infarction (CMS/HCC V24, CMS/HCC V28) TAKE 1 TABLET BY MOUTH EVERY DAY AT BEDTIME 90 tablet 5 03/27/20 25 Discontinu ed(Reorder ) Encounters Date Type Department Care Team Description 04/24/2025 9:30 AM EDT Clinical Support [facility] - [facility] [address] [facility] [address] [place] [address] Hypertension, unspecified type (Primary Dx) 04/22/2025 Telephone [facility] - [address] [place] [address] Fatmata Amezcua MA 04/21/2025 11:20 AM EDT Office Visit [facility] - [address] [place] [address] Juan Turk MD NSTEMI (non-ST elevated myocardial infarction) (CMS/HCC V24, CMS/HCC V28) (Primary Dx) from Last 3 Months Social History Tobacco Use Types Packs/Day Years [...] Mass Index 24.38 04/21/2025 11:23 AM EDT Plan of Treatment Health Maintenance Due Date Last Done Comments Zoster Vaccines (1 of 2) 1996 RSV Immunization Adult Patients (1 - 1-dose 75+ series) 2021 Cholesterol Screening (Lipid Panel) 06/22/2022 Falls Risk Assessment 06/22/2022 Hepatitis C Screening 06/22/2022 Medicare Annual Wellness Visit 06/22/2022 Social Influencers of Health Screening 06/22/2022 Depression Screening 07/24/2024 Influenza Vaccine (#1) 2025 , 06/26/2023, 05/25/2023, Additional history exists Hypertension/CHF/CAD Annual BMP Blood Test 04/24/2025 DTaP,Tdap,and Td Vaccines (3 - Td or Tdap) 07/07/2027 07/07/2017, 10/15/2004 Pneumococcal Vaccine: 50+ Years Completed 07/03/2015, 05/24/2012 COVID-19 Vaccine Completed 03/26/2025, , 06/05/2023, Additional history exists HIB Vaccines Aged Out No longer eligi [...] to complete this topic RSV Immunization Patients Under 20 months Aged Out No longer eligible based on patient's age to complete this topic Varicella Vaccines Aged Out No longer eligible based on patient's age to complete this topic Procedures Procedure Name Priority Date/Time Associated Diagnosis Comments ECG 12-LEAD Routine 04/21/2025 11:27 AM EDT NSTEMI (non-ST elevated myocardial infarction) (CMS/HCC V24, CMS/HCC V28) EXTERNAL CLINICAL LAB Routine 04/15/2025 2:39 PM EDT from Last 3 Months Results * ECG 12 lead (04/21/2025 11:27 AM EDT) Ventricular Rate ECG 69 BPM GEMUSE Atrial Rate 69 BPM GEMUSE P-R Interval 174 ms GEMUSE QRS Duration 90 ms GEMUSE Q-T Interval 406 ms GEMUSE QTc 435 ms GEMUSE P Wave [place] 61 degrees GEMUSE R [place] 36 degrees GEMUSE T [place] 32 degrees GEMUSE ECG Interpretation Normal sinus rhythm Normal ECG No previous ECGs available Confirmed by Chente TURK JAY ([id number]) on 04/21/2025 11:58:16 AM GEMUSE 04/21/2025 11:2 7 AM EDT 04/21/2025 11:58 AM EDT us Juan Turk MD ECG ORDERABLES Final Result GEMUSE * External clinical lab (04/15/2025 2:39 PM EDT) Historical Provider LAB BLOOD ORDERABLES Makayla l Result from Last 3 Months Insurance [employer] [address]ARY [id number] [place] [address] Care Teams Hog Ribber Relationship Specialty Start Date End Date Jordon Rowe MD [address] [place] [address] [address] [place] [phone] PCP - General 06/05/16
--- OUTSIDE RECORDS SUMMARY | 2025-04-24 11:54 | XMS_ITS | Clinical Summary ---
Author Organization [facility] Address [address] [facility] [address] [place] [address] Phone Care Team Providers Care [facility] Representative Name Role Phone Jordon Rowe MD Primary Care Provider +1- [phone] Allergies Active Allergy Reactions Criticality Noted Date [...] topic Medical Devices Not on file Insurance [facility] MED[facility] HMO REPLACEMENT [facility] MEDICARE HMO REPLACEMENT [place] [address] [place] [address] MEDICARE HMO REPLACEMENT [facility] MEDICARE HMO REPLACEMENT MEDICARE HMO REPLACEMENT [place] [address] [address] [address] [place] [place] [address] MEDICARE HMO REPLACEMENT [employer] HMO REPLACEMENT [employer] REPLACEMENT Care Teams Medical Center Representative Relationship Specialty Start Date End Date Jordon Rowe MD [address] [place] [phone] [email or web address] PCP - General Internal Medicine 10/16/17 Additional Source Comments The information contained in this document represents components of the legal health record. It is not the complete legal health record.[facility]
[2025-04-24 14:01] LABS: Anion Gap 11 (12-20); Blood Urea Nitrogen 16 mg/dL (9-16); Calcium 9.4 mg/dL (8.4-10.2); Carbon Dioxide 29 mmol/L (22-29); Chloride 105 mmol/L (96-108); Estimated Glomerular Filt Rate > 60; Potassium 4.1 mmol/L (3.3-5.1); Sodium 141 mmol/L (135-145)
== END 2025-04-24 10:23 | disposition home or self-care (01) ==
LOC: HO.HMGCLDS 10:22
PROVIDERS: PCP Internal Medicine; Visit Provider Internal Medicine Cardiovascular Disease
DX: I10 Essential (primary) hypertension (principal)
CPT/HCPCS: 36415; 80048

== ENCOUNTER 2025-05-12 14:04 | Outpatient (REF) | payer MEDICARE, SELFPAY ==
[2025-05-12 16:53] LABS: Anion Gap 12 (12-20); Blood Urea Nitrogen 17 mg/dL (9-16); Calcium 8.9 mg/dL (8.4-10.2); Carbon Dioxide 29 mmol/L (22-29); Chloride 104 mmol/L (96-108); Estimated Glomerular Filt Rate > 60; Potassium 3.9 mmol/L (3.3-5.1); Sodium 141 mmol/L (135-145)
== END 2025-05-12 14:05 | disposition home or self-care (01) ==
LOC: HO.HMGCLDS 14:04
PROVIDERS: PCP Internal Medicine; Visit Provider Internal Medicine Cardiovascular Disease
DX: I10 Essential (primary) hypertension (principal)
CPT/HCPCS: 36415; 80048